=== PATIENT | male | born 1945 | race Caucasian/White ===

== ENCOUNTER → 2016-11-17 | Outpatient (CLI) | payer OTHER ==
[2016-11-17 11:45] LABS: ESTIMATED AVERAGE GLUCOSE 209 mg/dl; HA1C FLAG Normal (Normal)
[2016-11-17 11:49] LABS: BLOOD UREA NITROGEN 20 mg/dl (7-18); BUN/CREATININE RATIO 19.7 (10-20); CALCIUM 9.3 mg/dl (8.5-10.1); CARBON DIOXIDE 28 mmol/L (21-32); CHLORIDE 103 mmol/L (98-107); GLUCOSE 84 mg/dl (70-99); POTASSIUM 3.4 mmol/L (3.5-5.1); SODIUM 140 mmol/L (136-145)
--- NOTE | 2016-11-21 12:16 | CODING QUERY MEDICAL NECESSITY ---
SUPPORTING DIAGNOSIS NEEDED A supporting diagnosis is required for the test/procedure performed on this patient in order for us to be reimbursed by the patient's insurance. Please provide a supporting diagnosis for the following test/procedure listed below next to the test name along with your signature. *If there is no additional diagnosis for this patient that would support the following test/procedure please document that below next to the test/procedure. Test(s)/Procedure(s) that require a supporting diagnosis: DOS 11/17 * PSA DIAGNOSIS: Provider Signature: Date: Thank you Aury Serna Health Information Management Once completed, please kindly fax back to [phone] For questions please call [phone]
== END | disposition home or self-care (01) ==
LOC: C.LABBC 08:38
PROVIDERS: ATTEND Internal Medicine Geriatric Medicine
DX: I10 Essential (primary) hypertension (principal); E78.5 Hyperlipidemia, unspecified; E11.9 Type 2 diabetes mellitus without complications; E03.9 Hypothyroidism, unspecified

== ENCOUNTER → 2017-03-26 | Outpatient (CLI) | payer OTHER ==
[2017-03-26 11:03] LABS: ESTIMATED AVERAGE GLUCOSE 186 mg/dl; HA1C FLAG Normal (Normal)
[2017-03-26 11:41] LABS: BLOOD UREA NITROGEN 13 mg/dl (7-18); BUN/CREATININE RATIO 11.7 (10-20); CALCIUM 8.7 mg/dl (8.5-10.1); CARBON DIOXIDE 30 mmol/L (21-32); CHLORIDE 104 mmol/L (98-107); GLUCOSE 98 mg/dl (70-99); POTASSIUM 3.8 mmol/L (3.5-5.1); SODIUM 141 mmol/L (136-145)
== END | disposition home or self-care (01) ==
LOC: C.LABBC 08:14
PROVIDERS: ATTEND Internal Medicine
DX: Z00.00 Encounter for general adult medical examination without abnormal findings (principal); I10 Essential (primary) hypertension; E11.9 Type 2 diabetes mellitus without complications; E03.9 Hypothyroidism, unspecified

== ENCOUNTER → 2017-04-28 | Outpatient (CLI) | payer OTHER ==
--- NOTE | 2017-04-28 12:06 | DIAGNOSTIC IMAGING REPORT ---
CHEST 2 VIEWS ROUTINE CLINICAL HISTORY: Cough, sore THROAT S/P COLONOSCOPY dyspnea COMPARISON STUDY: No previous studies for comparison. FINDINGS: The bones soft tissues and hemidiaphragms are normal. The cardiomediastinal silhouette is normal. The lungs are clear. The pulmonary vasculature is normal. IMPRESSION: Negative chest. Electronically signed by: Patrice Rodriguez M.D. 04/28/2017 12:05 PM Dictated Date/Time: 04/28/2017 12:04 PM
== END | disposition home or self-care (01) ==
LOC: C.RAD 11:21
PROVIDERS: ATTEND Internal Medicine Gastroenterology
DX: R05 Cough (principal); J02.9 Acute pharyngitis, unspecified

== ENCOUNTER → 2018-02-15 | Outpatient (CLI) | payer OTHER ==
[2018-02-15 11:31] LABS: HEMOGLOBIN A1C 8.9 % (4.5-5.6)
[2018-02-15 11:38] LABS: BLOOD UREA NITROGEN 17 mg/dl (7-18); CALCIUM 8.6 mg/dl (8.5-10.1); CARBON DIOXIDE 29 mmol/L (21-32); CREATININE 0.94 mg/dl (0.60-1.40); GLUCOSE 130 mg/dl (70-99); POTASSIUM 3.7 mmol/L (3.5-5.1); SODIUM 138 mmol/L (136-145)
== END | disposition home or self-care (01) ==
LOC: C.LABBC 07:05
PROVIDERS: ATTEND Internal Medicine Geriatric Medicine
DX: I10 Essential (primary) hypertension (principal); E78.5 Hyperlipidemia, unspecified; E11.9 Type 2 diabetes mellitus without complications; E03.9 Hypothyroidism, unspecified

== ENCOUNTER 2020-05-15 08:52 | Inpatient (IN) ==
--- NOTE | 2020-04-24 10:29 | Anesthesiology Consultation ---
Date of Service April 24, 2020 Assessment & Plan (1) Encounter for pre-operative examination: Patient was seen in PAT 11/23/19 for shoulder surgery initially scheduled to be done 12/27/19, but was cancelled due to A1C elevation of 10.4%. A1C down to 8.1% as of 03/14/20. Labs will be updated again prior to surgery. Chart Review Chart Review: Acceptable Risk for Surgery (pending updated pre-op labs) and Patient NOT seen in Pre Admission Testing History Surgery Operation Date: 05/15/20 11:10 Proposed Procedures p Right Total shoulder Arthroplasty versus Right Reverse Total Shoulder Arthroplasty - Lyle Nieves, Height/Weight Height: 5 ft 5 in Weight: 77.111 kg Allergies Allergy/AdvReac Type Severity Reaction Status Date / Time No Known Allergies Allergy Verified 04/24/20 07:55 Medications Home Medications Medication Instructions Recorded Confirmed Last Taken levothyroxine 50 mcg tablet 50 mcg PO QAM tab 05/25/19 04/24/20 Unknown amlodipine 5 mg PO QAM 11/16/19 04/24/20 Unknown lisinopril-hydrochlorothiazide 1 tab PO QAM 11/16/19 04/24/20 Unknown insulin glargine 100 unit/mL (3 50 units SQ HS ml 11/29/19 04/24/20 Unknown mL) subcutaneous pen lisinopril 20 mg tablet 20 mg PO DAILY #90 tab 12/12/19 04/24/20 Unknown BD Ultra-Fine Short Pen Needle 31 #100 ea NS 02/17/20 03/20/20 Unknown gauge x 5/16" atorvastatin 10 mg tablet 10 mg PO DAILY #90 tab 02/17/20 04/24/20 Unknown ascorbic acid (vitamin C) 500 mg 500 mg PO .qday #90 cap 03/21/20 04/24/20 Unknown capsule ferrous sulfate 325 mg (65 mg 325 mg PO DAILY #90 tab 03/21/20 04/24/20 Unknown iron) tablet metformin 500 mg tablet 500 mg PO BID #180 tab 03/21/20 04/24/20 Unknown blood sugar diagnostic #100 ea 04/12/20 Unknown Past Medical History Medical History (Updated 04/24/20 @ 10:24 by Edgar Burleson) Amnesia, global, 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 Biopsy (05/06) benign. Hyperlipidemia (Chronic) Hypertension Hypothyroidism Localized osteoarthritis of both shoulders Past Family History Family History Sister Diabetes Anxiety Depression Family hx of colon cancer Family/Other Prostate cancer Brother Diabetes Kidney disease Father , age 44 Brain tumor Mother , age 75 Stomach cancer at age 75 Other No family history of adverse response to anesthesia Denies family history of Ovarian cancer Myocardial infarction Breast cancer Hypertension Past Surgical History Surgical History History of prostate biopsy History of right cataract extraction Hx of colonoscopy WITH POLYPECTOMY, 07/2017 Hx of knee surgery RT [place] teeth removed Social History Smoking Status: Former smoker tobacco type: cigarettes Do You Dip or Chew Tobacco: No Smoking End Date: quit 45yrs ago Hx Alcohol Use: Yes Alcohol type: wine alcohol intake frequency: 0-2 drinks per day Hx Substance Use: No substance use type: does not use Testing Electrocardiogram Date: 11/23/19 Findings: + SB @ (54bpm) No significant change from 08/14/08. Chest X-Ray Date: 11/23/19 FINDINGS: Calcified plaque of the thoracic aorta. No pneumothorax, pleural effusion, focal airspace consolidation or overt pulmonary edema. Punctate metallic density focus projects of the left mid chest, not visualized on the lateral view. Bones appear grossly intact. Loose bodies are noted within the left subscapularis recess. Degenerative changes of the shoulders and spine. IMPRESSION: No acute process.
[2020-04-25 13:18] LABS: Basophils # (auto) 0.03 K/uL (0-0.2); Basophils % (auto) 0.5 %; Eosinophils # (auto) 0.11 K/uL (0-0.5); Eosinophils % (auto) 1.8 %; Hematocrit (blood only) 44.5 % (42-52); Hemoglobin 14.9 g/dL (14.0-18.0); Immature Granulocytes # (auto) 0.02 K/uL (0.00-0.02); Immature Granulocytes % (auto) 0.3 %; Lymphocytes # (auto) 1.46 K/uL (1.2-3.4); Lymphocytes % (auto) 23.9 %; Mean Corpuscular Hgb Conc 33.5 g/dL (32-36); Mean Corpuscular Volume 77.7 fL (80-100); Mean Platelet Volume 9.7 fL (7.4-10.4); Monocytes # (auto) 0.51 K/uL (0.11-0.59); Monocytes % (auto) 8.4 %; Neutrophils # (auto) 3.97 K/uL (1.4-6.5); Neutrophils % (auto) 65.1 %; Platelet Count 198 K/uL (130-400); RDW Coefficient of Variation 15.1 % (11.5-14.5); RDW Standard Deviation 42.7 fL (36.4-46.3); Red Blood Count 5.73 M/uL (4.7-6.1)
[2020-04-25 13:27] LABS: Free PSA % 19.2 %; Prostate Specific Antigen 5.52 ng/ml (0-4); Prothrombin Time 10.5 Seconds (9.0-12.0)
[2020-04-25 13:37] LABS: Estimated Average Glucose 177 mg/dl; Hemoglobin A1C 7.8 % (4.5-5.6)
[2020-04-25 13:57] LABS: BUN Creatinine Ratio 15.5 (10-20); Blood Urea Nitrogen 15 mg/dl (7-18); Carbon Dioxide 27 mmol/L (21-32); Chloride 102 mmol/L (98-107); Est GFR (African American) 90.5; Est GFR (Non-African American) 78.1; Glucose 113 mg/dl (70-99); Sodium 136 mmol/L (136-145)
--- NOTE | 2020-05-10 09:04 | History & Physical Report ---
Date of Service May 10, 2020 Assessment & Plan (1) Osteoarthritis of left shoulder: We will proceed with a left total shoulder arthroplasty. He understands if the rotator cuff quality is poor he may need a reverse shoulder replacement. Postoperatively he will be placed in an arm sling and kept overnight in the hospital for postoperative medical management. He plans to use energy physical therapy upon discharge. Present on Admission?: Yes History of Present Illness Chief Complaint: Primary osteoarthritis of the left shoulder Primary Care Prov ider: Lyle Escalona DO Humble is a pleasant 74-year-old male who is been dealing with chronic increasing left shoulder pain. X-rays and clinical examination have been diagnostic for advanced osteoarthritis of the left shoulder. After failing extensive conservative treatment, he has elected to proceed with a left total shoulder arthroplasty. Allergies Allergy/AdvReac Type Severity Reaction Status Date / Time No Known Allergies Allergy Verified 04/24/20 07:55 Home Medications Home Medications Medication Instructions Recorded Confirmed Type levothyroxine 50 mcg tablet 50 mcg PO QAM tab 05/25/19 04/24/20 History amlodipine 5 mg PO QAM 11/16/19 04/24/20 History lisinopril-hydrochlorothiazide 1 tab PO QAM 11/16/19 04/24/20 History insulin glargine 100 unit/mL (3 50 units SQ HS ml 11/29/19 04/24/20 History mL) subcutaneous pen lisinopril 20 mg tablet 20 mg PO DAILY #90 tab 12/12/19 04/24/20 Rx BD Ultra-Fine Short Pen Needle 31 #100 ea NS 02/17/20 03/20/20 Rx gauge x 5/16" atorvastatin 10 mg tablet 10 mg PO DAILY #90 tab 02/17/20 04/24/20 Rx ascorbic acid (vitamin C) 500 mg 500 mg PO .qday #90 cap 03/21/20 04/24/20 Rx capsule ferrous sulfate 325 mg (65 mg 325 mg PO DAILY #90 tab 03/21/20 04/24/20 Rx iron) tablet metformin 500 mg tablet 500 mg PO BID #180 tab 03/21/20 04/24/20 Rx blood sugar diagnostic #100 ea 04/12/20 Rx Past Med/Surg History Medical History Amnesia, global, 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 Biopsy (05/06) benign. Hyperlipidemia (Chronic) Hypertension Hypothyroidism Localized osteoarthritis of both shoulders Surgical History History of prostate biopsy History of right cataract extraction Hx of colonoscopy WITH POLYPECTOMY, 07/2017 Hx of knee surgery RT [place] teeth removed Family History Sister Diabetes Anxiety Depression Family hx of colon cancer Family/Other Prostate cancer Brother Diabetes Kidney disease Father , age 44 Brain tumor Mother , age 75 Stomach cancer at age 75 Other No family history of adverse response to anesthesia Denies family history of Ovarian cancer Myocardial infarction Breast cancer Hypertension Social History Smoking Status: Never smoker Age Started Using Tobacco: 23; Age Quit Using Tobacco: 29; packs per day: 0.5; 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); Hx Alcohol Use: Yes Alcohol type: wine Hx Substance Use: No Preferred Language: [place] Communication Ability: Effective Visual Impairment: No Limitations Hearing Ability: Normal Paleology Professor Required: No Beliefs That Will Affect Care: None marital status: Current Living Situation: Spouse and Family Current Living Situation Comment: lives with and son current occupational status: retired current occupation: teacher other: Previous Service Feels Safe at Home: Yes Childhood Exposure to Second-Hand Smoke: Yes caffeine: Yes Dental Care, Regularly: Yes Physical Activity Frequency: 1-2 Times per Week Seatbelt Use: always Sunscreen Use: Yes Review of Systems Review of Systems: All systems reviewed & are unremarkable except as noted in HPI & below Physical Exam Constitutional: WD/WN, vitals as above Eyes: PERRL, conjunctivae normal, anicteric sclerae ENMT: external ear and nose normal, oropharynx normal Neck: trachea midline, no thyromegaly Respiratory: normal respiratory effort Cardiovascular: RRR, no murmur, no edema Gastrointestinal (Abdomen): normal bowel sounds, soft, nontender, no hepatosplenomegaly Musculoskeletal: Physical examination of the left shoulder reveals decreased range of motion and crepitis throughout. There is good strength with full can testing and external rotation. There is tenderness palpation along the anterior glenohumeral joint line. The right upper extremity is neurovascularly intact. Psychiatric: A+Ox3, euthymic affect Results & Data Results & Data ([facility]) Diagnostic Findings Radiographs of the left shoulder show osteoarthritis of the glenohumeral joint. There is joint space narrowing, osteophyte formation, and [id number] articulation. PG Care Time/CCT Total # of Minutes Spent Total Time Spent with Patient: Total time spent is greater than 50% in coordination of care (as documented) at patient's floor/unit and/or counseling patient: Coding Level of Care Code 42690 Initial Inpt Care Lvl 3 Diagnoses Osteoarthritis of left shoulder M19.012
--- NOTE | 2020-05-15 08:28 | History & Physical Bridge Note ---
Date of Service May 15, 2020 History & Physical Bridge Note I have examined the patient, reviewed the History & Physical and in the interval since the performance of the History & Physical I have noted the following changes of clinical significance: no changes noted
[~2020-05-15 08:52] MED LIST: ACETAMINOPHEN 500 MG TAB PO SCH; BUPIVACAINE 0.5 % 5 MG/1 ML PF 10ML VIAL ONE; CEFAZOLIN 1000MG 1,000 MG/7.5 ML SYR IV SCH; FAMOTIDINE 20 MG TAB PO SCH; GABAPENTIN 300 MG CAP PO SCH; GLYCOPYRROLATE 0.2 MG/ML VIAL ONE; LIDOCAINE HCL 2% 2 ML VIAL/AMP(20MG/ML) INFIL ONE; LR 15ML/HR IV SCH; LR 60ML/HR IV SCH; MIDAZOLAM HCL 1 MG/ML 2ML VIAL ONE; NEOSTIGMINE METHYLSULFATE 5 MG/5 ML SYR ONE; ONDANSETRON INJ 2 MG/ML 2 ML VIAL ONE; PROPOFOL IV EMULSION 10 MG/ML 20 ML VIAL IV ONE; ROPIVACAINE 0.5% HCL/PF 150 MG, BUPIVACAINE 0.5% MPF 30 ML, EPINEPHrine 30MG/30ML (OR U... INSTIL SCH; TRANEXAMIC ACID 1,000 MG **IV Intra-op IV SCH; TRANEXAMIC ACID 1,000 MG **IV Pre-op IV SCH; dexAMETHasone 4 MG TAB PO SCH; fentaNYL citrate 100 MCG/2 ML VIAL ONE
[2020-05-15] MEDS ORDERED: ATROPINE SULFATE 0.1 MG/ML 10ML SYR IV PRN (09:08)
[2020-05-15] MEDS ORDERED: ONDANSETRON INJ 2 MG/ML 2 ML VIAL IV PRN ×2 (09:08→13:46)
[2020-05-15] MEDS ORDERED: fentaNYL citrate 100 MCG/2 ML VIAL IV PRN (09:08)
[2020-05-15] MEDS ORDERED: HYDROmorphone INJ 1 MG/ML SYRINGE IV PRN (09:08)
[2020-05-15] MEDS ORDERED: ePHEDrine sulfate 50 MG/ML AMP IV PRN (09:08)
[2020-05-15] MEDS ORDERED: ORTHO JOINT ANESTHETIC ONE (09:27)
--- NOTE | 2020-05-15 12:05 | Operative Report ---
PG Post Operative Report Pre & Post Diagnosis Operation Date: 05/15/20 10:55 Pre-Op Diagnosis: RIGHT SHOULDER DEGENERATIVE JOINT DISEASE with tendinopathy of the long head of the biceps tendon Post-Op Diagnosis: RIGHT SHOULDER DEGENERATIVE JOINT DISEASE with tendinopathy of the long head of the biceps tendon I identified the patient and participated in the time-out.: Yes Procedure Operation Date: 05/15/20 10:55 Actual Procedures p Right Total shoulder Arthroplasty with biceps tenodesis as a distinct and separate procedure (modifier 59) (right) - Lyle Nieves DO Surgeon Lyle Nieves DO Sign Designer Lyle Vazquez PAC Estimated Blood Loss 200 Findings Consistent with Post-Op Diagnosis Specimens Right humeral head Complications none Disposition Disposition: Recovery Room Indications Humble is a pleasant 74-year-old male who is been dealing with chronic increasing right shoulder pain. X-rays and clinical examination have been diagnostic for advanced osteoarthritis of the right shoulder. After failing conservative treatment, he elected proceed with a right shoulder arthroplasty. Description of Procedure A CPT code modifier 59: The long head of the biceps tendon was enlarged and inflamed consistent with tendinopathy. A tenodesis was opted. This was a separate and distinct portion of the procedure. For these reasons, a CPT code modifier 59 will be added to this case. Implants used: I used a Biomet Comprehensive total shoulder arthroplasty system with a size 13 press fit micro humeral stem, a size 50 x 24 eccentric humeral head, and a small size glenoid with a Regenerex peg. The glenoid was cemented in place with Palacos G cement. Humble arrived at [facility] for the above procedure. He was seen in the preoperative holding area and the operative extremity was identified and signed. He was given a preoperative antibiotic, TXA, and an interscalene nerve block. He was taken back to the operating room, laid on table in supine position, and put under general anesthesia. He was then put into the beachchair position. The shoulder was then prepped and draped in sterile fashion. A timeout was done and the patient and the operative extremity was properly identified. A deltopectoral approach was used. Dissection was taken down through the fascia and the deltoid was retracted laterally and the conjoined tendon was retracted medially. The anterior shoulder was exposed. The biceps groove was opened up and the biceps tendon was examined extensively. The biceps tendon demonstrated enlargement and inflammatory changes consistent with longstanding inflammation in the context of osteoarthritis. The long head of the biceps tendon was then tenodesed to the upper border of the pectoralis major. This was a separate and distinct portion of the procedure. The subscapularis was then released off the lesser tuberosity with a centimeter of cuff tissue remaining. The inferior capsule was released and the humeral head was dislocated. The rotator cuff was inspected and intact. A canal finding reamer was sent down the center of the humeral canal. Sequential reaming up to a size 13 reamer was done. Offset reamer a proximal humeral resection guide was placed. The proximal humerus was resected at 135 of inclination and 30 of retroversion. Inferior osteophytes were then removed and the glenoid was exposed. Time was spent doing an appropriate labral release. The glenoid measured to be a size small. A gBox signature guide was then attached onto the anterior rim of the glenoid. A 3.2 mm Steinmann pin was then placed in the total shoulder arthroplasty hole. The glenoid was then reamed with a propeller reamer. The central post cutter was then used to prepare for the central boss. The cannulated peripheral peg drill guide was then placed and 3 peg holes were drilled. The final size small glenoid was then cemented in place with Palacos G cement. Surrounding soft tissues were then injected with 100 cc of an orthopedic pain control cocktail. Once cement had dried the proximal humerus was once again exposed. Sequential broaching of the humerus up to a size 11 broach was done. Off that broach a size 50 x 24 eccentric humeral head was trialed. The shoulder was then reduced, brought through a full range of motion, and felt to be stable. The shoulder was then dislocated and the broach was removed. The final size 11 micro humeral stem implant was then impacted into place. A size 50 x 24 eccentric humeral head was then impacted onto the humeral stem. The shoulder was then reduced and once again brought through a full range of motion and felt to be stable. The subscapularis was then tenodesed back to the lesser tuberosity with transosseous FiberWire sutures and side to side sutures with the arm in 45 of external rotation. 2 sutures were placed in the lateral rotator interval. A dilute betadyne lavage was then done for 3 minutes. The joint was then irrigated with normal saline solution. Hemostasis was obtained. The interval was closed with 2-0 Vicryl suture. The skin was closed with 2-0 Vicryl and sheela. A Silverlon was placed and the arm was rested in a regular arm sling. He was then extubated and transferred to a hospital bed. He was taken to the postanesthesia care unit in stable condition. He tolerated the procedure well. Lyle Vazquez PA-C, was present for the entire procedure. He was critical for patient positioning, prepping, draping, retraction exposure, wound closure and application of sterile dressing. I attest to the content of the Intraoperative Record and any orders documented therein. Any exceptions are noted below.
--- NOTE | 2020-05-15 12:59 | XRay Report ---
XR shoulder RT min 2V routine CLINICAL HISTORY: Post shoulder surgery COMPARISON: 11/23/2019 DISCUSSION: There are postsurgical changes of a total right shoulder arthroplasty. There is no disloc ation. There are overlying skin sheela. There is air the soft tissues consistent with recent surgery . There is right lower lung zone atelectatic change. IMPRESSION: Postsurgical changes of a total right shoulder arthroplasty. No evidence of dislocation ACT 112: Negative or not required by law. Electronically signed by: Geo Yeboah M.D. 05/15/2020 12:57 PM
--- NOTE | 2020-05-15 13:14 | Anesthesiology Progress Note ---
Date of Service May 15, 2020 Anesthesia Post Procedure Vital Signs Vital Signs: Temp Pulse Pulse Resp BP Pulse Ox 05/15/20 12:50 67 18 130/79 94 05/15/20 12:40 65 20 147/77 H 98 05/15/20 12:30 62 18 143/74 H 99 05/15/20 12:22 35.8 C L 64 16 145/73 H 99 05/15/20 09:45 60 18 147/84 H 95 05/15/20 09:17 36.9 C 63 20 146/92 H 96 Transfer of Care Handoff Completed per policy Notes Mental Status: alert / awake / arousable and participated in evaluation Patient Amnestic to Procedure: Yes Nausea / Vomiting: adequately controlled Pain: adequately controlled Airway Patency, RR, SpO2: stable & adequate BP & HR: stable & adequate Hydration State: stable & adequate Anesthetic Complications: no major complications apparent and Pt Satisfied with anesthetic care
[2020-05-15] MEDS ORDERED: OXYCODONE HCL IR 5 MG TAB (IMMEDIATE RELEASE) PO PRN (13:46)
[2020-05-15] MEDS ORDERED: MAGNESIUM HYDROXIDE SUSP 30 ML UDC PO PRN (13:46)
[2020-05-15] MEDS ORDERED: bisacodyL 10 MG SUPP PR PRN (13:46)
[2020-05-15] MEDS ORDERED: NALOXONE HCL 0.4 MG/1 ML VIAL/CARP IV PRN (13:46)
[2020-05-15] MEDS ORDERED: METOCLOPRAMIDE HCL INJ 5 MG/ML 2 ML VIAL IV PRN (13:46)
[2020-05-15] MEDS ORDERED: HYDROmorphone INJ 0.5 MG/0.5 ML SYR IV PRN (13:46)
[2020-05-15] MEDS ORDERED: PHARMACY GLYCEMIC MGMT CONSULT PRN (14:07)
--- NOTE | 2020-05-15 14:37 | Pharmacy Report ---
Glycemic Control Consultation - Date of Service May 15, 2020 - Scope Scope: Glycemic Pharmacist consulted for glycemic control and to write orders per [facility] inpatient glycemic control protocol. - Objective Weight: 79.469 kg Accuchecks BSG (last 24hrs): 05/15/20 05/15/20 09:15 12:25 POC Glucose 130 H 138 H HbA1c: Hemoglobin A1c 7.8 % (4.5-5.6) H 04/25/20 09:57 - Recent Pertinent Medications Outpatient Anti-diabetic Regimen: * Lantus 50 units SC HS + Metformin 1000 mg PO BIDM * A1c = 7.8% (04/25/2020) Risk Factors for Insulin Resistance: * Steroids: * Dexamethasone 8 mg PO x 1 pre-op * Dexamethasone 4 mg topical x 1 intra-op * Recent Surgery: * POD #0 s/p Right Total Shoulder Arthroplasty * Diet: * T2DM - Assessment & Plan Assessment & Plan: ASSESSMENT: * 74 yo M who is POD #0 s/p Right Total Shoulder Arthroplasty. Pharmacy is consulted for post-operative glycemic management. * Patient's A1c is controlled as an outpatient on Lantus + Metformin. ADA & AACE recommend a goal blood sugar range 140-180 mg/dl for the majority of critically ill & non-critically ill patients. However, more stringent targets may be selected in individual cases. Will utilize more stringent goal of 110- 140mg/dl based on patient age & comorbidities. Additionally, tighter glycemic control is warranted to facilitate wound/infection healing. * Patient did receive dexamethasone pre-operatively. Dexamethasone will have its most profound effect on post-prandial BSGs. There are no further steroid doses ordered. * Pre-op BSG was 130 mg/dL. Patient did received 50 units of Lantus last evening. Post-op BSG was 138 mg/dL. * Will resume patient's home dose of 50 units at HS this evening given controlled BSGs post-op. Will start patient on a high stress/dose, weight- based, carb ratio and correction factor. PLAN FOR INPATIENT GLYCEMIC CONTROL: * Holding outpatient oral diabetes medications * Basal insulin * Lantus 50 units SQ HS * Bolus insulin * NovoLog per scale ACHS or Q6hrs while NPO * Goal Range: Low 110 mg/dL - High 140 mg/dL * Correction Factor: 20 mg/dL/unit * Nutritional / Prandial insulin per carb ratio of 1 unit per 7 grams CHO consumed * Please note that the plan above was derived based on current level of insulin resistance and hospital stress. These recommendations are appropriate for inpatient admission only. Plan of care upon discharge will need to be reassessed to avoid potential outpatient hypo/hyperglycemia. Thank you.
[2020-05-15] MEDS: SODIUM CHLORIDE 0.9% 1000ML 1,000 ML IV SCH (15:25)
[2020-05-15] MEDS: INSULIN ASPART 100 UNITS/ML 3 ML PEN SC SCH ×3 (15:34→21:31)
[2020-05-15] MEDS: ACETAMINOPHEN 500 MG TAB PO SCH ×2 (15:35→21:29)
[2020-05-15] MEDS ORDERED: INSULIN ASPART 100 UNITS/ML 3 ML PEN SC SCH (17:15)
[2020-05-15] MEDS: CEFAZOLIN 2000MG 2,000 MG/15 ML SYR IV SCH (18:19)
[2020-05-15] MEDS: KETOROLAC TROMETHAMINE 15 MG/ML VIAL IV SCH (18:19)
[2020-05-15] MEDS ORDERED: COUGH DROP (SUGAR FREE) LOZ 24 LOZ/1 BOX BUCCAL ONE (18:20)
[2020-05-15] MEDS ORDERED: INSULIN GLARGINE SOLOSTAR 100 UNITS/ML 3 ML PEN SC SCH (21:00)
[2020-05-15] MEDS ORDERED: SENNA 8.6 MG TAB PO SCH (21:00)
[2020-05-15] MEDS: DOCUSATE SODIUM 100 MG CAP PO SCH (21:29)
[2020-05-16] MEDS: SODIUM CHLORIDE 0.9% 1000ML 1,000 ML IV SCH (00:45)
[2020-05-16] MEDS: KETOROLAC TROMETHAMINE 15 MG/ML VIAL IV SCH ×2 (00:51→06:08)
[2020-05-16] MEDS: CEFAZOLIN 2000MG 2,000 MG/15 ML SYR IV SCH (00:57)
[2020-05-16] MEDS: ACETAMINOPHEN 500 MG TAB PO SCH (06:09)
[2020-05-16 06:22] LABS: Hematocrit (blood only) 37.3 % (42-52); Immature Granulocytes # (auto) 0.03 K/uL (0.00-0.02); Immature Granulocytes % (auto) 0.3 %; Lymphocytes # (auto) 0.72 K/uL (1.2-3.4); Lymphocytes % (auto) 6.6 %; Mean Corpuscular Hgb Conc 34.9 g/dL (32-36); Mean Corpuscular Volume 77.4 fL (80-100); Mean Platelet Volume 9.6 fL (7.4-10.4); Monocytes # (auto) 0.49 K/uL (0.11-0.59); Monocytes % (auto) 4.5 %; Neutrophils # (auto) 9.64 K/uL (1.4-6.5); Neutrophils % (auto) 88.6 %; Platelet Count 190 K/uL (130-400); RDW Coefficient of Variation 15.1 % (11.5-14.5); Red Blood Count 4.82 M/uL (4.7-6.1); White Blood Count 10.88 K/uL (4.8-10.8)
[2020-05-16] MEDS ORDERED: LEVOTHYROXINE SODIUM 50 MCG TABLET PO SCH (06:30)
--- NOTE | 2020-05-16 06:46 | Orthopedic Progress Note ---
Date of Service May 16, 2020 Assessment & Plan (1) Status post replacement of right shoulder joint: Overall he is doing very well. Is not having much pain in the right shoulder. He will be seen by physical therapy this morning for ambulation and range of motion exercises. He can be discharged home later today. He will follow-up with orthopedics in 2 weeks. Present on Admission?: Yes Subjective Humble was seen and examined at bedside this morning. Overall he is doing very well. Is not having much pain in the right shoulder. He was able to get some sleep last night. He has no complaints. Physical Exam Musculoskeletal: On physical examination of the right shoulder, the Silverlon dressing is clean and dry. He is wearing his sling as instructed. His radial, median, and ulnar nerves are checked intact at his wrist. Results & Data ([facility]) Vital Signs (Past 12 Hours) Vital Signs Temp Pulse Resp BP Pulse Ox 05/16/20 02:49 36.5 C 69 16 126/72 95 05/15/20 23:00 36.6 C 68 16 115/67 96 Diagnostic Findings Postoperative x-rays of the right shoulder show the prosthesis to be in anatomic alignment without any evidence of fracture, dislocation, or loosening. PG Care Time/CCT Total # of Minutes Spent Total Time Spent with Patient: Total time spent is greater than 50% in coordination of care (as documented) at patient's floor/unit and/or counseling patient: Coding Level of Care Code None Diagnoses Status post replacement of right shoulder joint Z96.611
--- NOTE | 2020-05-16 06:47 | Discharge Summary ---
Date of Service May 16, 2020 Admission HPI Per Admitting Provider Humble is a pleasant 74-year-old male who is been dealing with chronic increasing left shoulder pain. X-rays and clinical examination have been diagnostic for advanced osteoarthritis of the left shoulder. After failing extensive conservative treatment, he has elected to proceed with a left total shoulder arthroplasty. Principal Diagnosis Right shoulder replacement Discharge Data Allergies Allergy/AdvReac Type Severity Reaction Status Date / Time No Known Allergies Allergy Verified 05/15/20 09:17 Procedures Performed Operation Date: 05/15/20 10:55 Actual Procedures p Right Total shoulder Arthroplasty versus Right Reverse Total Shoulder Arthroplasty(Right) - Lyle Nieves DO Ordered Studies 05/15/20 05:00 US - OR guided needle placemen Routine 05/15/20 09:09 US - OR guided needle placemen Routine Hospital Course (1) Status post replacement of right shoulder joint: On May 15, 2020 Humble arrived at [facility] and underwent a right shoulder replacement without complication. He had a general anesthetic and a right interscalene nerve block. Postoperatively he was placed in a sling and transferred to the general orthopedic floors. His hospital course was uneventful. On postop day #1 his H&H was stable and his pain was well controlled. He was able to up his feet well with physical therapy doing ambulation and range of motion exercises. He was then discharged home. He will follow-up with orthopedics in 2 weeks. Total Time Total Time Spent Total Time Spent (In Minutes): 20 Discharge Plan Discharge Items Patient Disposition: Home - Home Health Services Reason For Visit: RIGHT SHOULDER DEGENERATIVE JOINT DISEASE Discharge Diagnosis: Right shoulder replacement Activity: As commented below Non-emergency contact: Surgeon Call non-emergency contact if: your wound has increased redness and your wound has increased drainage Follow-up/Referrals: Lyle Escalona DO [Primary Care Provider] - Diet: Carb Consistent or DM2 Addtl Attending Provider Instructions: Activity and Therapy Recommendations: * If you are using [facility] then therapy will be provided at your home until they feel you have accomplished all of your goals. * If you are using [facility] then Physical Therapy will be provided until they feel you are ready to start Outpatient Physical Therapy. * If you are not using home therapy then Outpatient Physical Therapy should start about 3-5 days from your day of surgery. Therapy will last about 8-12 weeks * Wear your sling for 3 weeks, unless otherwise instructed. You may remove your sling to shower and to dress, but otherwise, you should be in your sling at all times, including while sleeping * The shoulder replacement is very stable and you can use your hand while in the sling * You were shown a series of exercises in the hospital. Do these exercises daily including the exercises you were shown in physical therapy. Medications: * Narcotic You will likely be sent home from the hospital with a prescription for the narcotic pain medication that worked best throughout your stay. * Other medications may be prescribed for specific circumstances. If you have any questions, please call the office at . * Resume previous home medications unless otherwise instructed Dressing Care: Leave the Silverlon dressing in place for 7 days. After 7 days you may remove the dressing. If the incision is not draining then you may leave the sheela open to air. If there is a little bit of drainage or if the sheela are getting stuck on your clothing then cover the incision with a dry dressing. The sheela will be removed at your 2 week follow-up appointment. Showering: You may shower with the Silverlon dressing in place. Let the shower spray hit the other shoulder. You can pat the plastic dry. If the dressing becomes wet underneath the plastic then simply remove the dressing. Keep the incision dry until you are 7 days out from the day of surgery. At that time you can shower with the sheela exposed. Let the soapy shower water run over the sheela and pat them dry. Do not scrub or soak the incision. Things To Watch For: * Drainage from the incision site that occurs more than one week after your surgery. * Increased redness at the incision site. * Fever above 102 degrees Fahrenheit. * Unusual chest pain or shortness of breath. * Call [facility] at with any of the above problems Follow-Up Visit: Follow-up with Dr. iNeves's PA (Lyle Vazquez) 2-3 weeks after your day of surgery. He will remove your sheela and answer any questions. If you have any additional questions or concerns, Dr Nieves is usually in the office at the same time and will be available An appointment was probably scheduled when you signed-up for surgery in the office. If you have any questions call More detailed instructions as well as Frequently Asked Questions were provided in a folder by our office when you signed-up for surgery. Please review these instructions when you get home. If you have any further questions or concerns, please feel free to call the office at [phone] Pending Studies at Discharge: No Stand-Alone Forms: My [facility] [place] [employer], Smoking Cessation Medications and DC Order Prescriptions: New oxycodone 5 mg Tablet 5 mg PO Q4H PRN (Reason: pain) Qty: 30 RF: 0 Continued lisinopril 20 mg tablet 20 mg PO DAILY Qty: 90 RF: 3 atorvastatin 10 mg tablet 10 mg PO DAILY Qty: 90 RF: 3 (DME) pen needle, diabetic [BD Ultra-Fine Short Pen Needle] 31 gauge x 5/16" needle See Dose Instructions .ROUTE .MEDSUPPLY Qty: 100 RF: 3 ferrous sulfate 325 mg (65 mg iron) tablet 325 mg PO DAILY Qty: 90 RF: 0 ascorbic acid (vitamin C) 500 mg capsule 500 mg PO .qday Qty: 90 RF: 0 metformin 500 mg tablet 500 mg PO BID Qty: 180 RF: 3 (DME) OneTouch Ultra Blue Test Strip Strip See Dose Instructions .ROUTE .MEDSUPPLY Qty: 100 RF: 3 levothyroxine 50 mcg tablet 50 mcg PO QAM RF: 0 amlodipine 5 mg tablet 5 mg PO QAM RF: 0 lisinopril-hydrochlorothiazide 20-25 mg tablet 1 tab PO QAM RF: 0 Lantus Solostar U-100 Insulin 100 unit/mL (3 mL) insulin pen 50 units SQ HS RF: 0 Discharge Orders: Discharge Order (Routine); Ordered 05/16/20 Ordered By: Lyle Hamilton/Other Patient Handouts: Managing Type 2 Diabetes Admission Data Admit Date/Time: 05/15/20 12:21 Attending Provider: Lyle Nieves Admit Provider: Lyle Nieves Primary Care Provider: Lyle Escalona Coding Level of Care Code D/C Day Management <30 mins Diagnoses Status post replacement of right shoulder joint Z96.611
[2020-05-16 06:52] LABS: BUN Creatinine Ratio 17.3 (10-20); Calcium 8.3 mg/dl (8.5-10.1); Creatinine Clr Calc Pharmacy 64.6 ml/min; Est GFR (African American) 86.2; Est GFR (Non-African American) 74.3; Potassium 4.1 mmol/L (3.5-5.1)
[2020-05-16] MEDS: DOCUSATE SODIUM 100 MG CAP PO SCH (08:48)
[2020-05-16] MEDS: INSULIN ASPART 100 UNITS/ML 3 ML PEN SC SCH (08:51)
[2020-05-16] MEDS ORDERED: MULTIVITAMIN TAB PO SCH (09:00)
[2020-05-16] MEDS ORDERED: LISINOPRIL/HCTZ 20/25MG 1 TAB PO SCH (09:00)
[2020-05-16] MEDS ORDERED: AMLODIPINE BESYLATE 5 MG TAB PO SCH (09:00)
[2020-05-16] MEDS ORDERED: lisinopriL 20 MG TAB PO SCH (09:00)
[2020-05-16] MEDS ORDERED: ATORVASTATIN 10 MG TAB PO SCH (09:00)
[2020-05-16] MEDS ORDERED: FERROUS SULFATE 325 MG TAB PO SCH (09:00)
== END 2020-05-16 11:50 | disposition home health service (06) | DRG 483 ==
LOC: ASU 08:52 → 3E 12:21

== ENCOUNTER 2020-08-24 08:38 | Inpatient (IN) ==
--- NOTE | 2020-07-11 15:37 | PAT Medication Instructions ---
Medication Instructions Date of Service July 11, 2020 Home Medications Medication Instructions Recorded lisinopril 20 mg tablet 20 mg PO DAILY #90 tab 12/12/19 BD Ultra-Fine Short Pen Needle 31 #100 ea NS 02/17/20 gauge x 5/16" atorvastatin 10 mg tablet 10 mg PO DAILY #90 tab 02/17/20 ascorbic acid (vitamin C) 500 mg 500 mg PO .qday #90 cap 03/21/20 capsule blood sugar diagnostic #100 ea 04/12/20 amlodipine 5 mg tablet 5 mg PO QAM #90 tab 06/20/20 ferrous sulfate 325 mg (65 mg 325 mg PO DAILY #90 tab 06/20/20 iron) tablet lisinopril 20 1 tab PO QAM #90 tab 06/20/20 mg-hydrochlorothiazide 25 mg tablet metformin 1,000 mg tablet 1,000 mg PO BID #180 tab 07/03/20 levothyroxine 50 mcg tablet 50 mcg PO QAM #90 tab 07/09/20 insulin glargine 100 unit/mL (3 mL) subcutaneous pen 50 units SQ HS lisinopril 20 mg tablet 20 mg PO DAILY atorvastatin 10 mg tablet 10 mg PO DAILY ascorbic acid (vitamin C) 500 mg capsule 500 mg PO .qday amlodipine 5 mg tablet 5 mg PO QAM ferrous sulfate 325 mg (65 mg iron) tablet 325 mg PO DAILY lisinopril 20 mg-hydrochlorothiazide 25 mg tablet 1 tab PO QAM metformin 1,000 mg tablet 1,000 mg PO BID levothyroxine 50 mcg tablet 50 mcg PO QAM DO NOT take the morning of surgery lisinopril 20 mg tablet 20 mg PO DAILY ascorbic acid (vitamin C) 500 mg capsule 500 mg PO .qday ferrous sulfate 325 mg (65 mg iron) tablet 325 mg PO DAILY lisinopril 20 mg-hydrochlorothiazide 25 mg tablet 1 tab PO QAM metformin 1,000 mg tablet 1,000 mg PO BID Take morning of surgery With a small sip of water, OTHERWISE NOTHING TO EAT OR DRINK AFTER MIDNIGHT: atorvastatin 10 mg tablet 10 mg PO DAILY amlodipine 5 mg tablet 5 mg PO QAM levothyroxine 50 mcg tablet 50 mcg PO QAM Take evening before surgery insulin glargine 100 unit/mL (3 mL) subcutaneous pen 50 units SQ HS metformin 1,000 mg tablet 1,000 mg PO BID Other Notes If you have any questions please call us at [phone] or [phone] or [phone] or [phone]
--- NOTE | 2020-07-12 08:37 | Anesthesiology Consultation ---
Date of Service July 12, 2020 Assessment & Plan (1) Encounter for pre-operative examination: COVID Status: As of 07/12 assessment, patient denies travel to endemic area, known exposure/sick contacts, or symptoms of COVID19. Patient instructed that they and their household members must follow strict social distancing guidelines, wear a mask in public and avoid travel for 14 days prior to surgery. Preoperative COVID19 testing to be completed prior to surgery per surgeon's a rrangements. Patient made aware to self-isolate as much as possible between COVID testing and surgery. Patient goes by "Ramirez" Chart Review Chart Review: Acceptable Risk for Surgery and Patient NOT seen in Pre Admission Testing Teaching & Discussion Instructed NPO after midnight before surgery, except medications with 15 cc of water. Medication instructions provided according to the PAT guidelines. History Surgery Operation Date: 08/24/20 13:10 Proposed Procedures p Left Total Shoulder Arthroplasty versus - Lyle Simeoner, DO s Left Reverse Total Shoulder - Lyle Simeoner, DO Height/Weight Height: 5 ft 5.5 in Weight: 79.3 kg Allergies Allergy/AdvReac Type Severity Reaction Status Date / Time No Known Allergies Allergy Verified 07/11/20 10:12 Medications Home Medications Medication Instructions Recorded Confirmed Last Taken insulin glargine 100 unit/mL (3 50 units SQ HS ml 11/29/19 07/11/20 05/14/20 21:00 mL) subcutaneous pen lisinopril 20 mg tablet 20 mg PO DAILY #90 tab 12/12/19 07/11/20 05/14/20 07:00 BD Ultra-Fine Short Pen Needle 31 #100 ea NS 02/17/20 07/03/20 Unknown gauge x 5/16" atorvastatin 10 mg tablet 10 mg PO DAILY #90 tab 02/17/20 07/11/20 05/14/20 07:00 ascorbic acid (vitamin C) 500 mg 500 mg PO .qday #90 cap 03/21/20 07/11/20 05/14/20 11:00 capsule blood sugar diagnostic #100 ea 04/12/20 07/03/20 Unknown amlodipine 5 mg tablet 5 mg PO QAM #90 tab 06/20/20 07/11/20 Unknown ferrous sulfate 325 mg (65 mg 325 mg PO DAILY #90 tab 06/20/20 07/11/20 Unknown iron) tablet lisinopril 20 1 tab PO QAM #90 tab 06/20/20 07/11/20 Unknown mg-hydrochlorothiazide 25 mg tablet metformin 1,000 mg tablet 1,000 mg PO BID #180 tab 07/03/20 07/11/20 Unknown levothyroxine 50 mcg tablet 50 mcg PO QAM #90 tab 07/09/20 07/11/20 Unknown Past Medical History Medical History Amnesia, global, 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 Biopsy (05/06) benign. History of dysphagia Has had issues with food getting stuck, has had a few EGD dilations Hyperlipidemia Hypertension Hypothyroidism Exercise / Class Metabolic Activity II 4-5 Yardwork/Stairs/Walk up hill Past Family History Family History Sister Family hx of colon cancer Diabetes Anxiety Depression Family history of diabetes mellitus Family/Other Prostate cancer Brother Diabetes Kidney disease Father , age 44 Brain tumor Mother , age 75 Stomach cancer at age 75 Family history of diabetes mellitus Other No family history of adverse response to anesthesia Denies family history of Ovarian cancer Myocardial infarction Breast cancer Hypertension Past Surgical History Surgical History History of esophagogastroduodenoscopy (EGD) History of prostate biopsy History of right cataract extraction Hx of colonoscopy WITH POLYPECTOMY, 07/2017 Hx of knee surgery RT Status post replacement of right shoulder joint (~04/2020) [place] teeth removed Past Anesthesia History No Hx of Anesthesia Complications and No Family Hx of Anesthesia Complications History of PONV No Hx of PONV and No Hx of Motion Sickness Social History Smoking Status: Former smoker tobacco type: cigarettes Do You Dip or Chew Tobacco: No Smoking End Date: 1974 Hx Alcohol Use: Yes Alcohol type: wine alcohol intake frequency: 0-2 drinks per day Hx Substance Use: No substance use type: does not use Review of Systems Pt denies any recent chest pain, shortness of breath, palpitations, cough, fever, URI, or uncontrolled acid reflux. Physical Exam Vital Signs BP: 142/84 P: 63bpm SPO2: 96% RA T: 98.3 F R: 12 ENMT Mouth: + dental restorations (crowns, upper incisors and molars); no chipped teeth and no loose teeth Thyromental Distance: > or= 3.5 Finger Breadths Mallampati Class: II Neck normal visual inspection; neck extension not limited Respiratory normal respiratory effort Auscultation: lungs clear to auscultation bilaterally Cardiovascular Rate/Rhythm: regular rate and regular rhythm Heart Sounds: no murmur Extremities: no edema Testing Laboratory Results PT 10.4 Seconds (9.0-12.0) 07/12/20 08:41 INR 1.0 (0.9-1.1) 07/12/20 08:41 APTT 28.6 Seconds (21.0-31.0) 07/12/20 08:41 Blood Type O Negative 07/12/20 08:41 Antibody Screen NEGATIVE 07/12/20 08:41 07/02/20 WBC: 5.23 H/H: 16.1/47.2 PLATELETS: 210 SODIUM: 137 POTASSIUM: 3.7 CHLORIDE: 102 CO2: 28 BUN: 12 CREATININE: 0.93 GLUCOSE: 127 A1C: 8.1% Electrocardiogram Date: 11/23/19 Sinus bradycardia @ 54bpm When compared with ECG of 14-AUG-2008 09:51, No significant change was found. Chest X-Ray Date: 11/23/19 Findings: + NAD
[2020-07-12 10:42] LABS: Partial Thromboplastin Time 28.6 Seconds (21.0-31.0); Prothrombin Time 10.4 Seconds (9.0-12.0)
--- NOTE | 2020-08-23 08:45 | History & Physical Report ---
Date of Service August 23, 2020 Assessment & Plan (1) Osteoarthritis of left shoulder: We will proceed with a left total shoulder arthroplasty. Postoperatively he will be placed in a sling and kept overnight in the hospital for postoperative medical management. [facility] plans [facility]. Present on Admission?: Yes History of Present Illness Chief Complaint: Primary osteoarthritis of the left shoulder Primary Care Provider: Lyle Escalona DO Humble is a pleasant 74-year-old male who I did a right total shoulder arthroplasty on about 4 months ago. He is done very well with that. Unfortunately he has been dealing with a lot of left shoulder pain. X-rays and clinical examination have been diagnostic for advanced osteoarthritis of the left shoulder. After failing conservative treatment, he has elected proceed with a left total shoulder arthroplasty. Allergies Allergy/AdvReac Type Severity Reaction Status Date / Time No Known Allergies Allergy Verified 08/17/20 08:48 Home Medications Home Medications Medication Instructions Recorded Confirmed Type BD Ultra-Fine Short Pen Needle 31 #100 ea NS 02/17/20 07/03/20 Rx gauge x 5/16" blood sugar diagnostic #100 ea 04/12/20 07/03/20 Rx amlodipine 5 mg tablet 5 mg PO QAM #90 tab 06/20/20 08/22/20 Rx lisinopril 20 1 tab PO QAM #90 tab 06/20/20 08/22/20 Rx mg-hydrochlorothiazide 25 mg tablet metformin 1,000 mg tablet 1,000 mg PO BID #180 tab 07/03/20 08/22/20 Rx levothyroxine 50 mcg tablet 50 mcg PO QAM #90 tab 07/09/20 08/22/20 Rx Lantus Solostar U-100 Insulin 50 unit SQ HS 08/15/20 08/22/20 History ascorbic acid (vitamin C) 500 mg PO QPM 08/15/20 08/22/20 History atorvastatin 10 mg PO QAM 08/15/20 08/22/20 History ferrous sulfate 325 mg PO QAM 08/15/20 08/22/20 History lisinopril 20 mg PO QAM 08/15/20 08/22/20 History pantoprazole 40 mg PO QAM 08/22/20 08/22/20 History Past Med/Surg History Medical History Amnesia, global, 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 Biopsy (05/06) benign. History of dysphagia Has had issues with food getting stuck, has had a few EGD dilations Hyperlipidemia Hypertension Hypothyroidism Surgical History History of esophagogastroduodenoscopy (EGD) History of prostate biopsy History of right cataract extraction Hx of colonoscopy WITH POLYPECTOMY, 07/2017 Hx of knee surgery RT Status post replacement of right shoulder joint (~04/2020) [place] teeth removed Family History Sister Family hx of colon cancer Diabetes Anxiety Depression Family history of diabetes mellitus Family/Other Prostate cancer Brother Diabetes Kidney disease Father , age 44 Brain tumor Mother , age 75 Stomach cancer at age 75 Family history of diabetes mellitus Other No family history of adverse response to anesthesia Denies family history of Ovarian cancer Myocardial infarction Breast cancer Hypertension Social History Smoking Status: Former smoker Age Started Using Tobacco: 23; Age Quit Using Tobacco: 29; packs per day: 0.5; Years Smoked: 6; Second Hand Exposure: No; Hx Alcohol Use: Yes Alcohol type: wine Hx Substance Use: No Preferred Language: Welsh Communication Ability: Effective Visual Impairment: No Limitations Hearing Ability: Normal Portfolio Assistant Required: No Beliefs That Will Affect Care: None marital status: Current Living Situation: Spouse current occupational status: retired current occupation: teacher other: Previous Service Feels Safe at Home: Yes Childhood Exposure to Second-Hand Smoke: Yes caffeine: Yes Dental Care, Regularly: Yes Physical Activity Frequency: 1-2 Times per Week Seatbelt Use: always Sunscreen Use: Yes Assistive Devices: None Review of Systems Review of Systems: All systems reviewed & are unremarkable except as noted in HPI & below Physical Exam Constitutional: WD/WN, vitals as above Eyes: PERRL, conjunctivae normal, anicteric sclerae ENMT: external ear and nose normal, oropharynx normal Neck: trachea midline, no thyromegaly Respiratory: normal respiratory effort Cardiovascular: RRR, no murmur, no edema Gastrointestinal (Abdomen): normal bowel sounds, soft, nontender, no hepatosplenomegaly Musculoskeletal: Physical examination of the left shoulder reveals decreased range of motion and crepitis throughout. There is good strength with full can testing and external rotation. There is tenderness palpation along the anterior glenohumeral joint line. The right upper extremity is neurovascularly intact. Psychiatric: A+Ox3, euthymic affect Results & Data Results & Data ([facility]) Diagnostic Findings Radiographs of the left shoulder show osteoarthritis of the glenohumeral joint. There is joint space narrowing, osteophyte formation, and [id number] articulation. PG Care Time/CCT Total # of Minutes Spent Total Time Spent with Patient: Total time spent is greater than 50% in coordination of care (as documented) at patient's floor/unit and/or counseling patient: Coding Level of Care Code None Diagnoses Osteoarthritis of left shoulder M19.012
[~2020-08-24 08:38] MED LIST changes: -CEFAZOLIN 1000MG 1,000 MG/7.5 ML SYR IV SCH; -GLYCOPYRROLATE 0.2 MG/ML VIAL ONE; -LIDOCAINE HCL 2% 2 ML VIAL/AMP(20MG/ML) INFIL ONE; -MIDAZOLAM HCL 1 MG/ML 2ML VIAL ONE; -NEOSTIGMINE METHYLSULFATE 5 MG/5 ML SYR ONE; -ONDANSETRON INJ 2 MG/ML 2 ML VIAL ONE; -PROPOFOL IV EMULSION 10 MG/ML 20 ML VIAL IV ONE; +ROPIVACAINE 0.5% HCL/PF 150 MG, BUPIVACAINE 0.5% MPF 30 ML, EPINEPHrine 30MG/30ML (OR U... INFIL SCH; -ROPIVACAINE 0.5% HCL/PF 150 MG, BUPIVACAINE 0.5% MPF 30 ML, EPINEPHrine 30MG/30ML (OR U... INSTIL SCH; +ceFAZolin 1000MG 1,000 MG/7.5 ML SYR IV SCH; -fentaNYL citrate 100 MCG/2 ML VIAL ONE
[2020-08-24] MEDS ORDERED: MIDAZOLAM HCL 1 MG/ML 2ML VIAL ONE (09:08)
[2020-08-24] MEDS ORDERED: fentaNYL citrate 100 MCG/2 ML VIAL ONE (09:08)
[2020-08-24] MEDS ORDERED: PROPOFOL IV EMULSION 10 MG/ML 20 ML VIAL IV ONE (09:09)
[2020-08-24] MEDS ORDERED: ONDANSETRON INJ 2 MG/ML 2 ML VIAL ONE (09:09)
--- NOTE | 2020-08-24 09:16 | History & Physical Bridge Note ---
Date of Service August 24, 2020 History & Physical Bridge Note I have examined the patient, reviewed the History & Physical and in the interval since the performance of the History & Physical I have noted the following changes of clinical significance: no changes noted
[2020-08-24] MEDS ORDERED: ORTHO JOINT ANESTHETIC ONE (10:17)
[2020-08-24] MEDS ORDERED: ePHEDrine sulfate 50 MG/ML AMP IV PRN (10:18)
[2020-08-24] MEDS ORDERED: ATROPINE SULFATE 0.1 MG/ML 10ML SYR IV PRN (10:18)
[2020-08-24] MEDS ORDERED: ONDANSETRON INJ 2 MG/ML 2 ML VIAL IV PRN ×2 (10:18→13:45)
[2020-08-24] MEDS ORDERED: fentaNYL citrate 100 MCG/2 ML VIAL IV PRN (10:18)
[2020-08-24] MEDS ORDERED: NEOSTIGMINE METHYLSULFATE 5 MG/5 ML SYR ONE (12:14)
[2020-08-24] MEDS ORDERED: GLYCOPYRROLATE 0.2 MG/ML VIAL ONE (12:14)
[2020-08-24] MEDS ORDERED: DEXAMETHASONE SOD INJ 4 MG/ML VIAL ONE (12:14)
--- NOTE | 2020-08-24 12:25 | Operative Report ---
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 X-rays and clinical examination were diagnostic for advanced osteoarthritis of the left shoulder. After failing conservative treatment, he elected proceed with a left total shoulder arthroplasty. He did have a right shoulder replacement done about 4 months ago and did very well with that. Description of Procedure A CPT code modifier 59: The long head of the biceps tendon was enlarged and inflamed consistent with tendinopathy. A tenodesis was opted. This was a separate and distinct portion of the procedure. For these reasons, a CPT code modifier 59 will be added to this case. Implants used: I used a ZimmerBiomet Comprehensive total shoulder arthroplasty system with a size 13 press fit micro humeral stem, a size 50 x 24 eccentric humeral head, and a size 3 augmented glenoid with a trabecular metal peg. The glenoid was cemented in place with Palacos G cement. Humble arrived at [facility] for the above procedure. He was seen in the preoperative holding area and the operative extremity was identified and signed. He was given a preoperative antibiotic, TXA, and an interscalene nerve block. He was taken back to the operating room, laid on table in supine position, and put under general anesthesia. He was then put into the beachchair position. The shoulder was then prepped and draped in sterile fashion. A timeout was done and the patient and the operative extremity was properly identified. A deltopectoral approach was used. Dissection was taken down through the fascia and the deltoid was retracted laterally and the conjoined tendon was retracted medially. The anterior shoulder was exposed. The biceps groove was opened up and the biceps tendon was examined extensively. The biceps tendon demonstrated enlargement and inflammatory changes consistent with longstanding inflammation in the context of osteoarthritis. The long head of the biceps tendon was then tenodesed to the upper border of the pectoralis major. This was a separate and distinct portion of the procedure. The subscapularis was then released off the lesser tuberosity with a centimeter of cuff tissue remaining. The inferior capsule was released and the humeral head was dislocated. The rotator cuff was inspected and intact. A canal finding reamer was sent down the center of the humeral canal. Sequential reaming up to a size 13 reamer was done. Offset reamer a proximal humeral resection guide was placed. The proximal humerus was resected at 135 of inclination and 30 of retroversion. Inferior osteophytes were then removed and the glenoid was exposed. Time was spent doing an appropriate labral release. The glenoid measured to be a size 3 augmented. A ZimFandium Signature One guide was then attached onto the anterior rim of the glenoid. A 3.2 mm Steinmann pin was then placed in the total shoulder arthroplasty hole. The glenoid was then reamed with a propeller reamer. The central post cutter was then used to prepare for the central boss. The cannulated peripheral peg drill guide was then placed and 3 peg holes were drilled. The final size 3 augmented glenoid was then cemented in place with Palacos G cement. Surrounding soft tissues were then injected with 100 cc of an orthopedic pain control cocktail. Once cement had dried the proximal humerus was once again exposed. Sequential broaching of the humerus up to a size 13 broach was done. Off that broach a size 50 x 24 eccentric humeral head was trialed. The shoulder was then reduced, brought through a full range of motion, and felt to be stable. The shoulder was then dislocated and the broach was removed. The final size 13 micro humeral stem implant was then impacted into place. A size 50 x 24 eccentric humeral head was then impacted onto the humeral stem. The shoulder was then reduced and once again brought through a full range of motion and felt to be stable. The subscapularis was then tenodesed back to the lesser tuberosity with transosseous FiberWire sutures and side to side sutures with the arm in 45 of external rotation. 2 sutures were placed in the lateral rotator interval. A dilute betadyne lavage was then done for 3 minutes. The joint was then irrigated with normal saline solution. Hemostasis was obtained. The interval was closed with 2-0 Vicryl suture. The skin was closed with 2-0 Vicryl and sheela. A Silverlon dressing was placed and the arm was rested in a regular arm sling. He was then extubated and transferred to a hospital bed. He was taken to the postanesthesia care unit in stable condition. He tolerated the procedure well. Lyle Vazquez PA-C, was present for the entire procedure. He was critical for pa tient positioning, prepping, draping, retraction exposure, wound closure and application of sterile dressing. I attest to the content of the Intraoperative Record and any orders documented therein. Any exceptions are noted below.
--- NOTE | 2020-08-24 13:13 | XRay Report ---
XR shoulder LT min 2V routine CLINICAL HISTORY: Post shoulder surgery COMPARISON: CT of the left shoulder July 12, 2020. FINDINGS: Alignment of the left shoulder arthroplasty is anatomic. There is no periprosthetic fractu re. There is no unexpected radiopaque foreign body. There are skin sheela. Linear left basilar opaci ty represents atelectasis. IMPRESSION: Expected findings following left shoulder arthroplasty. ACT 112: Negative or not required by law. Electronically signed by: Timothy Hagen M.D. 08/24/2020 1:11 PM
--- NOTE | 2020-08-24 13:20 | Anesthesiology Progress Note ---
Date of Service August 24, 2020 Anesthesia Post Procedure Vital Signs Vital Signs: Temp Pulse Pulse Resp BP Pulse Ox 08/24/20 13:15 75 19 154/82 H 99 08/24/20 13:05 70 19 155/82 H 98 08/24/20 12:55 73 17 162/89 H 100 08/24/20 12:47 97.2 F L 70 14 180/88 H 100 08/24/20 09:29 98.1 F 58 L 16 132/79 98 Transfer of Care Handoff Completed per policy Notes Mental Status: alert / awake / arousable and participated in evaluation Patient Amnestic to Procedure: Yes Nausea / Vomiting: adequately controlled Pain: adequately controlled Airway Patency, RR, SpO2: stable & adequate BP & HR: stable & adequate Hydration State: stable & adequate Anesthetic Complications: no major complications apparent and Pt Satisfied with anesthetic care
[2020-08-24] MEDS ORDERED: NALOXONE HCL 0.4 MG/1 ML VIAL/CARP IV PRN (13:45)
[2020-08-24] MEDS ORDERED: MAGNESIUM HYDROXIDE SUSP 30 ML UDC PO PRN (13:45)
[2020-08-24] MEDS ORDERED: bisacodyL 10 MG SUPP PR PRN (13:45)
[2020-08-24] MEDS ORDERED: METOCLOPRAMIDE HCL INJ 5 MG/ML 2 ML VIAL IV PRN (13:45)
[2020-08-24] MEDS ORDERED: oxyCODONE HCL IR 5 MG TAB (IMMEDIATE RELEASE) PO PRN (13:45)
[2020-08-24] MEDS ORDERED: HYDROmorphone INJ 0.5 MG/0.5 ML SYR IV PRN (13:45)
[2020-08-24] MEDS: SODIUM CHLORIDE 0.9% 1000ML 1,000 ML IV SCH (14:02)
[2020-08-24] MEDS ORDERED: PHARMACY GLYCEMIC MGMT CONSULT SCH (14:18)
[2020-08-24] MEDS ORDERED: CARBOHYDRATES FOR HYPOGLYCEMIA PO PRN (14:30)
[2020-08-24] MEDS ORDERED: DEXTROSE 50% 50 ML SYRINGE IV PRN (14:30)
[2020-08-24] MEDS ORDERED: GLUCOSE 40% GEL 15 GM TUBE PO PRN (14:30)
[2020-08-24] MEDS ORDERED: NovoLIN-N (NPH) PER UNIT CHARGE SQ ONE (14:30)
[2020-08-24] MEDS ORDERED: GLUCAGON FOR INJ 1 MG VIAL IM PRN (14:30)
[2020-08-24] MEDS ORDERED: GLUCOSE 10 TABS/TUBE PO PRN (14:30)
--- NOTE | 2020-08-24 14:31 | Pharmacy Report ---
Glycemic Control Consultation - Date of Service August 24, 2020 - Scope Scope: Glycemic Pharmacist consulted for glycemic control and to write orders per [facility] inpatient glycemic control protocol. - Objective Weight: 78.2 kg Accuchecks BSG (last 24hrs): 08/24/20 08/24/20 09:08 12:54 POC Glucose 124 H 154 H - Recent Pertinent Medications Outpatient Anti-diabetic Regimen: * Lantus 50 units SQ HS * Metformin 1000mg PO BID * A1c = 8.1 % 07/02/20 Risk Factors for Insulin Resistance: * Steroids: Dexamethasone 8mg PO + 4mg IV Preop * Recent Surgery: s/p total shoulder arthroplasty * Diet: Type 2 DM - Assessment & Plan Assessment & Plan: ASSESSMENT: * 74 yo M s/p Right Total Shoulder Arthroplasty. Pharmacy is consulted for post- operative glycemic management. * Patient maintained on Lantus + Metformin outpatient. ADA & AACE recommend a goal blood sugar range 140-180 mg/dl for the majority of critically ill & non- critically ill patients. However, more stringent targets may be selected in individual cases. Will utilize more stringent goal of 110-140mg/dl based on patient age & comorbidities. Additionally, tighter glycemic control is warranted to facilitate wound/infection healing. * Oral agents are not recommended for inpatient use d/t drug interactions, changing PO intake, and difficulty titrating for acute hyper/hypoglycemia. ADA recommends re-initiating outpatient oral agents 1-2 days prior to discharge if/when appropriate if they were held on admission. * Patient did receive dexamethasone pre-operatively. Will give NPH dose to cover effects on blood sugar. * Will resume patient's home Lantus dose of 50 units at HS this evening and start patient on a high stress/dose, weight-based, CR/CF, and additional accuchecks overnight. PLAN FOR INPATIENT GLYCEMIC CONTROL: * Holding outpatient oral diabetes medications * Basal insulin * NPH 20 units SQ x 1 dose now * Lantus 50 units SQ HS * Bolus insulin * NovoLog per scale ACHS or Q6hrs while NPO & overnight tonight at 0000 and 0400 * Goal Range: Low 110 mg/dL - High 140 mg/dL * Correction Factor: 20 mg/dL/unit * Nutritional / Prandial insulin per carb ratio of 1 unit per 7 grams CHO consumed * Please note that the plan above was derived based on current level of insulin resistance and hospital stress. These recommendations are appropriate for inpatient admission only. Plan of care upon discharge will need to be reassessed to avoid potential outpatient hypo/hyperglycemia. Thank you.
[2020-08-24] MEDS: INSULIN ASPART 100 UNITS/ML 3 ML PEN SC SCH ×3 (14:38→20:46)
[2020-08-24] MEDS: KETOROLAC TROMETHAMINE 15 MG/ML VIAL IV SCH ×2 (14:39→19:36)
[2020-08-24] MEDS: ACETAMINOPHEN 500 MG TAB PO SCH (17:36)
[2020-08-24] MEDS: ceFAZolin 2000MG 2,000 MG/15 ML SYR IV SCH (18:08)
[2020-08-24] MEDS: DOCUSATE SODIUM 100 MG CAP PO SCH (20:51)
[2020-08-24] MEDS ORDERED: INSULIN GLARGINE SOLOSTAR 100 UNITS/ML 3 ML PEN SC SCH (21:00)
[2020-08-24] MEDS ORDERED: SENNA 8.6 MG TAB PO SCH (21:00)
[2020-08-25] MEDS: INSULIN ASPART 100 UNITS/ML 3 ML PEN SC SCH ×4 (00:13→11:47)
[2020-08-25] MEDS: SODIUM CHLORIDE 0.9% 1000ML 1,000 ML IV SCH (00:47)
[2020-08-25] MEDS: KETOROLAC TROMETHAMINE 15 MG/ML VIAL IV SCH ×2 (02:41→07:42)
[2020-08-25] MEDS: ceFAZolin 2000MG 2,000 MG/15 ML SYR IV SCH (02:41)
[2020-08-25] MEDS: ACETAMINOPHEN 500 MG TAB PO SCH (06:28)
[2020-08-25] MEDS ORDERED: LEVOTHYROXINE SODIUM 50 MCG TABLET PO SCH (06:30)
--- NOTE | 2020-08-25 07:10 | Orthopedic Progress Note ---
Date of Service August 25, 2020 Assessment & Plan (1) Status post replacement of left shoulder joint: Overall he is doing very well. Is not having much pain in the left shoulder. He will be seen by physical therapy this morning for ambulation and range of motion exercises. He can be discharged home later today. He will follow-up with orthopedics in 2 weeks. Present on Admission?: Yes Admission and Anticipated Discharge Date Admission Date: August 24, 2020 Kelly Kate was seen and examined at bedside this morning. Overall is doing very well. Is not having any pain in the left shoulder. He is happy with his progress so far. He was able to get some sleep last night. He has no complaints. Physical Exam Physical Exam: On physical examination of his left shoulder, the dressing is clean and dried. He is wearing his sling as instructed. I am unable to do a neurologic examination because the nerve block is still in effect. Results & Data ([facility]) Vital Signs (Past 12 Hours) Vital Signs Temp Pulse Resp BP Pulse Ox 08/25/20 07:05 36.7 C 72 20 137/87 97 08/25/20 02:48 36.5 C 73 14 135/79 94 08/24/20 22:58 36.5 C 81 16 137/85 97 08/24/20 19:27 36.5 C 93 H 18 152/91 H 94 Diagnostic Findings Postoperative x-rays of the left shoulder show the prosthesis to be in anatomic alignment without any evidence of fracture, dislocation, or loosening. PG Care Time/CCT Total # of Minutes Spent Total Time Spent with Patient: Total time spent is greater than 50% in coordination of care (as documented) at patient's floor/unit and/or counseling patient: Coding Level of Care Code None Diagnoses Status post replacement of left shoulder joint Z96.612
--- NOTE | 2020-08-25 07:12 | Discharge Summary ---
Date of Service August 25, 2020 Admission HPI Per Admitting Provider Humble is a pleasant 74-year-old male who I did a right total shoulder arthroplasty on about 4 months ago. He is done very well with that. Unfortunately he has been dealing with a lot of left shoulder pain. X-rays and clinical examination have been diagnostic for advanced osteoarthritis of the left shoulder. After failing conservative treatment, he has elected proceed with a left total shoulder arthroplasty. Principal Diagnosis Left total shoulder arthroplasty Discharge Data Allergies Allergy/AdvReac Type Severity Reaction Status Date / Time No Known Allergies Allergy Verified 08/24/20 09:16 Consultations 08/24/20 13:45 Consult Case Management - Discharge Planning Routine Procedures Performed Operation Date: 08/24/20 10:50 Actual Procedures p Left Total Shoulder Arthroplasty(Left) - Lyle Nieves DO Ordered Studies 08/24/20 05:00 US - OR guided needle placemen Routine Hospital Course (1) Status post replacement of left shoulder joint: On August 24, 2020 Humble arrived at [facility] and underwent a left shoulder replacement without complication. He had a general anesthetic. Postoperatively he was placed in a sling and transferred to the general orthopedic floors. His hospital course was uneventful. On postop day #1 his H&H was stable and his pain was well controlled. He was able to put his feet well with physical therapy doing ambulation and range of motion exercises. He was then discharged home. He will follow-up with orthopedics in 2 weeks. Total Time Total Time Spent Total Time Spent (In Minutes): 20 Discharge Plan Discharge Items Patient Disposition: Home - Home Health Services Reason For Visit: Left Shoulder Degenerative Joint Disease Discharge Diagnosis: Left shoulder replacement Activity: As commented below Non-emergency contact: Surgeon Call non-emergency contact if: your wound has increased redness and your wound has increased drainage Follow-up/Referrals: Lyle Escalona DO [Primary Care Provider] - Diet: Carb Consistent or DM2 Addtl Attending Provider Instructions: Activity and Therapy Recommendations: * If you are using [facility] then therapy will be provided at your home until they feel you have accomplished all of your goals. * If you are using [facility] then Physical Therapy will be provided until they feel you are ready to start Outpatient Physical Therapy. * If you are not using home therapy then Outpatient Physical Therapy should sta rt about 3-5 days from your day of surgery. Therapy will last about 8-12 weeks * Wear your sling for 3 weeks, unless otherwise instructed. You may remove your sling to shower and to dress, but otherwise, you should be in your sling at all times, including while sleeping * The shoulder replacement is very stable and you can use your hand while in the sling * You were shown a series of exercises in the hospital. Do these exercises daily including the exercises you were shown in physical therapy. Medications: * Narcotic You will likely be sent home from the hospital with a prescription for the narcotic pain medication that worked best throughout your stay. * Other medications may be prescribed for specific circumstances. If you have any questions, please call the office at . * Resume previous home medications unless otherwise instructed Dressing Care: Leave the Silverlon dressing in place for 7 days. After 7 days you may remove the dressing. If the incision is not draining then you may leave the sheela open to air. If there is a little bit of drainage or if the sheela are getting stuck on your clothing then cover the incision with a dry dressing. The sheela will be removed at your 2 week follow-up appointment. Showering: You may shower with the Silverlon dressing in place. Do not let the shower spray hit the dressing directly. Pat the Silverlon dressing dry. If the dressing becomes wet underneath, then simply remove the dressing. Keep the incision dry until you are 7 days out from the day of surgery. After 7 days you may remove the Silverlon dressing and shower with the sheela exposed. Let soapy water run over the sheela and pat them dry. Do not scrub or soak the incision. Things To Watch For: * Drainage from the incision site that occurs more than one week after your surgery. * Increased redness at the incision site. * Fever above 102 degrees Fahrenheit. * Unusual chest pain or shortness of breath. * Call [facility] at with any of the above problems Follow-Up Visit: Follow-up with Dr. Nieves's PA (Lyle Vazquez) 2-3 weeks after your day of surgery. He will remove your sheela and answer any questions. If you have any additional questions or concerns, Dr Nieves is usually in the office at the same time and will be available An appointment was probably scheduled when you signed-up for surgery in the office. If you have any questions call More detailed instructions as well as Frequently Asked Questions were provided in a folder by our office when you signed-up for surgery. Please review these instructions when you get home. If you have any further questions or concerns, please feel free to call the office at [phone] Pending Studies at Discharge: No Stand-Alone Forms: My [facility] Cernium, Smoking Cessation Medications and DC Order Prescriptions: Continued (DME) pen needle, diabetic [BD Ultra-Fine Short Pen Needle] 31 gauge x 5/16" needle See Dose Instructions .ROUTE .MEDSUPPLY Qty: 100 RF: 3 (DME) OneTouch Ultra Blue Test Strip Strip See Dose Instructions .ROUTE .MEDSUPPLY Qty: 100 RF: 3 amlodipine 5 mg tablet 5 mg PO QAM Qty: 90 RF: 3 lisinopril-hydrochlorothiazide 20-25 mg tablet 1 tab PO QAM Qty: 90 RF: 3 levothyroxine 50 mcg tablet 50 mcg PO QAM Qty: 90 RF: 3 metformin 1,000 mg tablet 1,000 mg PO BID Qty: 180 RF: 3 atorvastatin 10 mg tablet 10 mg PO QAM RF: 0 lisinopril 20 mg tablet 20 mg PO QAM RF: 0 ferrous sulfate 325 mg (65 mg iron) tablet 325 mg PO QAM RF: 0 Lantus Solostar U-100 Insulin 100 unit/mL (3 mL) insulin pen 50 unit SQ HS RF: 0 ascorbic acid (vitamin C) 500 mg capsule 500 mg PO QPM RF: 0 pantoprazole 40 mg tablet,delayed release (DR/EC) 40 mg PO QAM RF: 0 Discharge Orders: Discharge Order (Routine); Ordered 08/25/20 Ordered By: Lyle Nieves Admission Data Admit Date/Time: 08/24/20 12:45 Attending Provider: Lyle Nieves Admit Provider: Lyle Nieves Primary Care Provider: Lyle Escalona Coding Level of Care Code D/C Day Management <30 mins Diagnoses Status post replacement of left shoulder joint Z96.612
[2020-08-25] MEDS: DOCUSATE SODIUM 100 MG CAP PO SCH (07:42)
[2020-08-25 07:58] LABS: Hematocrit (blood only) 38.9 % (42-52); Hemoglobin 13.4 g/dL (14.0-18.0); Immature Granulocytes # (auto) 0.02 K/uL (0.00-0.02); Immature Granulocytes % (auto) 0.2 %; Lymphocytes # (auto) 0.59 K/uL (1.2-3.4); Lymphocytes % (auto) 5.2 %; Mean Corpuscular Hemoglobin 27.1 pg (25-34); Mean Corpuscular Hgb Conc 34.4 g/dL (32-36); Mean Corpuscular Volume 78.6 fL (80-100); Monocytes # (auto) 0.72 K/uL (0.11-0.59); Monocytes % (auto) 6.3 %; Neutrophils % (auto) 88.3 %; Platelet Count 209 K/uL (130-400); RDW Coefficient of Variation 13.6 % (11.5-14.5); RDW Standard Deviation 38.4 fL (36.4-46.3); Red Blood Count 4.95 M/uL (4.7-6.1); White Blood Count 11.43 K/uL (4.8-10.8)
[2020-08-25 08:30] LABS: BUN Creatinine Ratio 16.1 (10-20); Calcium 8.3 mg/dl (8.5-10.1); Creatinine Clr Calc Pharmacy 63.5 ml/min; Est GFR (African American) 85.1; Est GFR (Non-African American) 73.4; Potassium 3.7 mmol/L (3.5-5.1)
[2020-08-25] MEDS ORDERED: PANTOprazole 40 MG TAB PO SCH (09:00)
[2020-08-25] MEDS ORDERED: lisinopril 20 MG TAB PO SCH (09:00)
[2020-08-25] MEDS ORDERED: LISINOPRIL/HCTZ 20/25MG 1 TAB PO SCH (09:00)
[2020-08-25] MEDS ORDERED: MULTIVITAMIN TAB PO SCH (09:00)
[2020-08-25] MEDS ORDERED: amLODIPine BESYLATE 5 MG TAB PO SCH (09:00)
[2020-08-25] MEDS ORDERED: FERROUS SULFATE 325 MG TAB PO SCH (09:00)
[2020-08-25] MEDS ORDERED: ATORVASTATIN 10 MG TAB PO SCH (09:00)
[2020-08-25 11:18] VITALS: BP 131/64; PULSE 73; TEMP 97.9; O2SAT 95
== END 2020-08-25 12:56 | disposition home health service (06) | DRG 483 ==
LOC: ASU 08:38 → 3E 12:45

== ENCOUNTER 2020-12-28 09:02 | Observation (INO) ==
--- NOTE | 2020-11-23 10:56 | PAT Medication Instructions ---
Medication Instructions Date of Service November 23, 2020 Home Medications Medication Instructions Recorded BD Ultra-Fine Short Pen Needle 31 #100 ea NS 02/17/20 gauge x 5/16" amlodipine 5 mg tablet 5 mg PO QAM #90 tab 06/20/20 lisinopril 20 1 tab PO QAM #90 tab 06/20/20 mg-hydrochlorothiazide 25 mg tablet metformin 1,000 mg tablet 1,000 mg PO BID #180 tab 07/03/20 levothyroxine 50 mcg tablet 50 mcg PO QAM #90 tab 07/09/20 pantoprazole 40 mg tablet,delayed 40 mg PO BID #60 tab 09/05/20 release ferrous sulfate 325 mg (65 mg 325 mg PO QAM #90 tab 09/17/20 iron) tablet blood sugar diagnostic #100 ea 11/15/20 dulaglutide 1.5 mg/0.5 mL 1.5 mg SUBCUT .qweek #2 ml 11/15/20 subcutaneous pen injector amlodipine 5 mg tablet 5 mg PO QAM lisinopril 20 mg-hydrochlorothiazide 25 mg tablet 1 tab PO QAM metformin 1,000 mg tablet 1,000 mg PO BID levothyroxine 50 mcg tablet 50 mcg PO QAM ascorbic acid (vitamin C) 500 mg PO QPM atorvastatin 10 mg PO QAM lisinopril 20 mg PO QAM pantoprazole 40 mg tablet,delayed release 40 mg PO BID ferrous sulfate 325 mg (65 mg iron) tablet 325 mg PO QAM insulin glargine 100 unit/mL (3 mL) subcutaneous pen 30 unit SQ HS dulaglutide 1.5 mg/0.5 mL subcutaneous pen injector 1.5 mg SUBCUT .qweek Continue as directed dulaglutide 1.5 mg/0.5 mL subcutaneous pen injector 1.5 mg SUBCUT .qweek DO NOT take the morning of surgery lisinopril 20 mg-hydrochlorothiazide 25 mg tablet 1 tab PO QAM metformin 1,000 mg tablet 1,000 mg PO BID lisinopril 20 mg PO QAM ferrous sulfate 325 mg (65 mg iron) tablet 325 mg PO QAM Take morning of surgery With a small sip of water, OTHERWISE NOTHING TO EAT OR DRINK AFTER MIDNIGHT: amlodipine 5 mg tablet 5 mg PO QAM levothyroxine 50 mcg tablet 50 mcg PO QAM atorvastatin 10 mg PO QAM pantoprazole 40 mg tablet,delayed release 40 mg PO BID Take evening before surgery metformin 1,000 mg tablet 1,000 mg PO BID ascorbic acid (vitamin C) 500 mg PO QPM pantoprazole 40 mg tablet,delayed release 40 mg PO BID insulin glargine 100 unit/mL (3 mL) subcutaneous pen 30 unit SQ HS Other Notes If you have any questions please call us at [phone] or [phone] or [phone] or [phone]
--- NOTE | 2020-11-28 09:10 | Anesthesiology Consultation ---
Date of Service November 28, 2020 Assessment & Plan (1) Encounter for pre-operative examination: - Per assessment on 11/28: Travel screen negative. No known COVID-19 positive contacts or current COVID-19 related symptoms. Surgeon arranging preop COVID testing. Awaiting results. - Check BSG AM DOS - Left total shoulder arthroplasty: 08/24/20: Attempt x1 DL MAC 3 (grade 3 view) > Attempt x1 DL In[place]#3 (grade 2 view), ETT 7 + PNB at [facility] - Concerns RE: SAB- discussed SAB vs. GA. Patient voiced understanding. Questions/concerns addressed. Patient states he will call if any further questions. Chart Review Chart Review: Acceptable Risk for Surgery and Patient seen in Pre Admission T esting Teaching & Discussion Pre-Anesthesia Teaching/Discussion Notes: Instructed NPO after midnight before surgery,except medications with 15 cc of water. Medication instructions provided according to the PAT guidelines. History Surgery Operation Date: 12/28/20 07:15 Proposed Procedures p Right Total Knee Arthroplasty - Lyle Nieves, Height/Weight Height: 5 ft 6 in Weight: 80.9 kg Allergies Allergy/AdvReac Type Severity Reaction Status Date / Time No Known Allergies Allergy Verified 11/15/20 10:06 Medications Home Medications Medication Instructions Recorded Confirmed Last Taken BD Ultra-Fine Short Pen Needle 31 #100 ea NS 02/17/20 11/15/20 Unknown gauge x 5/16" amlodipine 5 mg tablet 5 mg PO QAM #90 tab 06/20/20 11/15/20 08/24/20 06:30 lisinopril 20 1 tab PO QAM #90 tab 06/20/20 11/15/20 08/23/20 08:30 mg-hydrochlorothiazide 25 mg tablet metformin 1,000 mg tablet 1,000 mg PO BID #180 tab 07/03/20 11/15/20 08/23/20 22:00 levothyroxine 50 mcg tablet 50 mcg PO QAM #90 tab 07/09/20 11/15/20 08/24/20 06:30 ascorbic acid (vitamin C) 500 mg PO QPM 08/15/20 11/15/20 08/17/20 atorvastatin 10 mg PO QAM 08/15/20 11/15/20 08/23/20 08:30 lisinopril 20 mg PO QAM 08/15/20 11/15/20 08/23/20 08:30 pantoprazole 40 mg tablet,delayed 40 mg PO BID #60 tab 09/05/20 11/15/20 Unknown release ferrous sulfate 325 mg (65 mg 325 mg PO QAM #90 tab 09/17/20 11/15/20 Unknown iron) tablet insulin glargine 100 unit/mL (3 30 unit SQ HS ml 10/09/20 11/15/20 Unknown mL) subcutaneous pen blood sugar diagnostic #100 ea 11/15/20 11/15/20 Unknown dulaglutide 1.5 mg/0.5 mL 1.5 mg SUBCUT .qweek #2 ml 11/15/20 11/15/20 Unknown subcutaneous pen injector Past Medical History Medical History (Updated 11/28/20 @ 10:09 by Charmaine Nogueira) Amnesia, global, 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 s/p unremarkable workup, no issues since Diabetes mellitus, type II IDDM Elevated PSA under surveillance by urology, s/p benign biopsy (05/06) History of dysphagia S/P EGD with dilation, no recent issues Hyperlipidemia Hypertension Hypothyroidism Exercise / Class Metabolic Activity II 4-5 Yardwork/Stairs/Walk up hill Past Family History Family History Sister Family hx of colon cancer Diabetes Anxiety Depression Family history of diabetes mellitus Family/Other Prostate cancer Brother Diabetes Kidney disease Father , age 44 Brain tumor Mother , age 75 Stomach cancer at age 75 Family history of diabetes mellitus Other No family history of adverse response to anesthesia Denies family history of Ovarian cancer Myocardial infarction Breast cancer Hypertension Past Surgical History Surgical History (Updated 11/28/20 @ 10:07 by Charmaine Nogueira) History of esophagogastroduodenoscopy (EGD) History of prostate biopsy History of right cataract extraction Hx of colonoscopy + polypectomy Hx of knee surgery Right Status post replacement of left shoulder joint Left total shoulder arthroplasty: 08/24/20: Attempt x1 DL MAC 3 (grade 3 view) > Attempt x1 DL Inman#3 (grade 2 view), ETT 7 + PNB at [facility] Status post replacement of right shoulder joint [place] teeth removed Past Anesthesia History No Hx of Anesthesia Complications and No Family Hx of Anesthesia Complications Social History Smoking Status: Former smoker tobacco type: cigarettes Do You Dip or Chew Tobacco: No Smoking End Date: Quit in 1974 Hx Alcohol Use: Yes Alcohol type: wine alcohol intake frequency: 0-2 drinks per day (1 drink/day) Hx Substance Use: No substance use type: does not use Review of Systems + intermittent snoring (no witnessed apnea events) Patient denies chest pain, shortness of breath, dyspnea on exertion, fever, chills, cough, wheezing, palpitations. Physical Exam Vital Signs VITALS BP 121/79 P 63 TEMP 98.1 SP02 98%RA RESP 16 PHYSICAL Full neck and c-spine range of motion. Full TMJ range of motion. TMD 3 finger breaths Mallampati Score 1 Dentition: intact, +crowns several all over Lungs: clear throughout to auscultation Cardiac: regular rate and rhythm, no murmurs noted Spine: normal Carotid arteries: negative bruit Extremities: no edema Testing Laboratory Results 11/28/20 09:52 11/28/20 09:52 PT 10.0 Seconds (9.0-12.0) 11/28/20 09:52 INR 1.0 (0.9-1.1) 11/28/20 09:52 APTT 27.3 Seconds (21.0-31.0) 02 09:52 Hemoglobin A1c 7.1 % (4.5-5.6) H 11/28/20 09:52 Blood Type O Negative 11/28/20 09:52 Antibody Screen NEGATIVE 11/28/20 09:52 Electrocardiogram Date: 11/28/20 NSR at 63bpm. Cannot r/o anterior infarct, age undetermined (similar findings per 11/23/2019 EKG). NS TWA. Chest X-Ray Date: 11/28/20 FINDINGS: The cardiac and mediastinal contours are normal. There is no evidence of focal pulmonary consolidation. There is no evidence of failure. No pleural effusions are visualized.[There are bilateral shoulder arthroplasties. There is a tiny metallic foreign body projected over the left lower lobe, unchanged from the prior study. IMPRESSION: No active disease in the chest.
[2020-11-28 10:36] LABS: Basophils # (auto) 0.02 K/uL (0-0.2); Basophils % (auto) 0.3 %; Eosinophils # (auto) 0.13 K/uL (0-0.5); Eosinophils % (auto) 2.2 %; Hematocrit (blood only) 42.5 % (42-52); Immature Granulocytes # (auto) 0.01 K/uL (0.00-0.02); Immature Granulocytes % (auto) 0.2 %; Lymphocytes # (auto) 1.59 K/uL (1.2-3.4); Lymphocytes % (auto) 27.5 %; Mean Corpuscular Hemoglobin 27.4 pg (25-34); Mean Corpuscular Hgb Conc 35.3 g/dL (32-36); Mean Corpuscular Volume 77.7 fL (80-100); Mean Platelet Volume 9.2 fL (7.4-10.4); Monocytes # (auto) 0.44 K/uL (0.11-0.59); Monocytes % (auto) 7.6 %; Neutrophils % (auto) 62.2 %; Platelet Count 196 K/uL (130-400); RDW Standard Deviation 36.8 fL (36.4-46.3); Red Blood Count 5.47 M/uL (4.7-6.1); White Blood Count 5.79 K/uL (4.8-10.8)
--- NOTE | 2020-11-28 10:47 | XRay Report ---
XR chest Pre-admission PA/Lat CLINICAL HISTORY: Preoperative chest COMPARISON STUDY: 11/23/2019 FINDINGS: The cardiac and mediastinal contours are normal. There is no evidence of focal pulmonary co nsolidation. There is no evidence of failure. No pleural effusions are visualized.[There are bilatera l shoulder arthroplasties. There is a tiny metallic foreign body projected over the left lower lobe, unchanged from the prior study. IMPRESSION: No active disease in the chest. ACT 112: Negative or not required by law. Electronically signed by: Geo Yeboah M.D. 11/28/2020 10:46 AM
[2020-11-28 10:48] LABS: Partial Thromboplastin Time 27.3 Seconds (21.0-31.0)
[2020-11-28 11:03] LABS: Estimated Average Glucose 157 mg/dl; Hemoglobin A1C 7.1 % (4.5-5.6)
[2020-11-28 12:40] LABS: BUN Creatinine Ratio 17.4 (10-20); Calcium 8.9 mg/dl (8.5-10.1); Creatinine Clr Calc Pharmacy 72.2 ml/min; Est GFR (African American) 96.6; Est GFR (Non-African American) 83.3; Potassium 4.4 mmol/L (3.5-5.1)
--- NOTE | 2020-11-28 13:01 | Electrocardiogram Report ---
Test Reason : Blood Pressure : / mmHG Vent. Rate : 063 BPM Atrial Rate : 063 BPM P-R Int : 152 ms QRS Dur : 078 ms QT Int : 414 ms P-R-T Axes : 047 060 -09 degrees QTc Int : 423 ms Normal sinus rhythm Cannot rule out Anterior infarct , age undetermined Abnormal ECG When compared with ECG of 23-NOV-2019 10:23, Inverted T waves have replaced nonspecific T wave abnormality in Inferior leads Confirmed by Tyler Laura ([id number]) on 11/28/2020 1:01:17 PM Referred By: Lyle Nieves Confirmed By:Tyler Laura
--- NOTE | 2020-12-27 08:16 | History & Physical Report ---
Date of Service December 27, 2020 Assessment & Plan (1) Osteoarthritis of right knee: We will proceed with a right total knee arthroplasty. Postoperatively he will be started on aspirin for DVT prophylaxis and kept overnight in the hospital for postoperative medical management. He plans to use energy physical therapy upon discharge. History of Present Illness Chief Complaint: Osteoarthritis of the right knee Primary Care Provider: Lyle EscalonaDO Kate is a pleasant 75-year-old male who is been dealing with chronic increasing right knee pain. X-rays and clinical examination have been diagnostic for advanced osteoarthritis of the right knee. He does have a history of a right knee arthroscopy done by Dr. Jett garza about 10 to 12 years ago. After failing conservative treatment, he has elected to proceed with a right total knee arthroplasty.. . Allergies Allergy/AdvReac Type Severity Reaction Status Date / Time No Known Allergies Allergy Verified 11/15/20 10:06 Home Medications Medication Instructions Recorded Confirmed Type BD Ultra-Fine Short Pen Needle 31 #100 ea NS 02/17/20 11/15/20 Rx gauge x 5/16" amlodipine 5 mg tablet 5 mg PO QAM #90 tab 06/20/20 11/15/20 Rx lisinopril 20 1 tab PO QAM #90 tab 06/20/20 11/15/20 Rx mg-hydrochlorothiazide 25 mg tablet metformin 1,000 mg tablet 1,000 mg PO BID #180 tab 07/03/20 11/15/20 Rx levothyroxine 50 mcg tablet 50 mcg PO QAM #90 tab 07/09/20 11/15/20 Rx ascorbic acid (vitamin C) 500 mg PO QPM 08/15/20 11/15/20 History atorvastatin 10 mg PO QAM 08/15/20 11/15/20 History pantoprazole 40 mg tablet,delayed 40 mg PO BID #60 tab 09/05/20 11/15/20 Rx release ferrous sulfate 325 mg (65 mg 325 mg PO QAM #90 tab 09/17/20 11/15/20 Rx iron) tablet blood sugar diagnostic #100 ea 11/15/20 11/15/20 Rx dulaglutide 1.5 mg/0.5 mL 1.5 mg SUBCUT .qweek #2 ml 11/15/20 11/15/20 Rx subcutaneous pen injector insulin glargine 100 unit/mL (3 20 unit SQ HS #15 ml 12/03/20 Rx mL) subcutaneous pen lisinopril 20 mg tablet 20 mg PO QAM #90 tab 12/25/20 Rx Past Med/Surg History Medical History Amnesia, global, 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 s/p unremarkable workup, no issues since Diabetes mellitus, type II IDDM Elevated PSA under surveillance by urology, s/p benign biopsy (05/06) History of dysphagia S/P EGD with dilation, no recent issues Hyperlipidemia Hypertension Hypothyroidism Surgical History History of esophagogastroduodenoscopy (EGD) History of prostate biopsy History of right cataract extraction Hx of colonoscopy + polypectomy Hx of knee surgery Right Status post replacement of left shoulder joint Left total shoulder arthroplasty: 08/24/20: Attempt x1 DL MAC 3 (grade 3 view) > Attempt x1 DL In[place]#3 (grade 2 view), ETT 7 + PNB at [facility] Status post replacement of right shoulder joint [place] teeth removed Family History Sister Family hx of colon cancer Diabetes Anxiety Depression Family history of diabetes mellitus Family/Other Prostate cancer Brother Diabetes Kidney disease Father , age 44 Brain tumor Mother , age 75 Stomach cancer at age 75 Family history of diabetes mellitus Other No family history of adverse response to anesthesia Denies family history of Ovarian cancer Myocardial infarction Breast cancer Hypertension Social History Smoking Status: Former smoker Age Started Using Tobacco: 23; Age Quit Using Tobacco: 29; packs per day: 0.5; Years Smoked: 6; Smoking End Date: Quit in 1974; Second Hand Exposure: Yes (IN THE PAST); Do You Dip or Chew Tobacco: No; Tobacco Cessation Education Requested by Patient: No Hx Alcohol Use: Yes Alcohol type: wine Hx Substance Use: No Preferred Language: Turkmen Communication Ability: Effective Visual Impairment: No Limitations Hearing Ability: Normal Sales Solutions Representative Required: No Beliefs That Will Affect Care: None marital status: Current Living Situation: Family Current Living Situation Comment: AND SON current occupational status: retired current occupation: teacher other: Previous Service Feels Safe at Home: Yes Safety Concerns: Feels Safe At This Time Childhood Exposure to Second-Hand Smoke: Yes caffeine: Yes Dental Care, Regularly: Yes Physical Activity Frequency: 1-2 Times per Week Seatbelt Use: always Sunscreen Use: Yes Assistive Devices: None Review of Systems All systems reviewed & are unremarkable except as noted in HPI & below. Physical Exam On physical examination of the right knee, he is a slight varus deformity. He has a trace effusion. He has range of motion from 0 to 120 degrees. He has no instability.. Constitutional WD/WN, vitals as above Eyes PERRL, conjunctivae normal, anicteric sclerae ENMT external ear and nose normal, oropharynx normal Neck trachea midline, no thyromegaly Respiratory normal respiratory effort Cardiovascular RRR, no murmur, no edema Gastrointestinal (Abdomen) normal bowel sounds, soft, nontender, no hepatosplenomegaly Psychiatric A+Ox3, euthymic affect Results & Data Results & Data Laboratory Results . Diagnostic Findings X-rays of the right knee do show advanced osteoarthritis. It mostly involves the medial compartment.. PG Care Time/CCT Total # of Minutes Spent Total Time Spent with Patient: Total time spent is greater than 50% in coordination of care (as documented) at patient's floor/unit and/or counseling patient: Coding Level of Care Code None Diagnoses Osteoarthritis of right knee M17.11
[~2020-12-28 09:02] MED LIST changes: +BUPIVACAINE 0.25% 30 ML VIAL ONE; +LIDOCAINE HCL 2% 2 ML VIAL/AMP(20MG/ML) INFIL ONE; -LR 15ML/HR IV SCH; +LR 500ML BOLUS, THEN 15ML/HR IV SCH; +MIDAZOLAM HCL 1 MG/ML 2ML VIAL ONE; +PROPOFOL IV EMULSION 10 MG/ML 20 ML VIAL IV ONE; -ROPIVACAINE 0.5% HCL/PF 150 MG, BUPIVACAINE 0.5% MPF 30 ML, EPINEPHrine 30MG/30ML (OR U... INFIL SCH; +ROPIVACAINE 0.5% HCL/PF 150 MG, BUPIVACAINE 0.75% MPF 20 ML, EPINEPHrine 30MG/30ML (OR ... INSTIL SCH; -ceFAZolin 1000MG 1,000 MG/7.5 ML SYR IV SCH; +ceFAZolin 2000MG 2,000 MG/15 ML SYR IV SCH; +fentaNYL citrate 100 MCG/2 ML VIAL ONE
--- NOTE | 2020-12-28 09:22 | History & Physical Bridge Note ---
Date of Service December 28, 2020 History & Physical Bridge Note I have examined the patient, reviewed the History & Physical and in the interval since the performance of the History & Physical I have noted the following changes of clinical significance: no changes noted
[2020-12-28] MEDS ORDERED: ONDANSETRON INJ 2 MG/ML 2 ML VIAL IV PRN ×2 (10:03→13:40)
[2020-12-28] MEDS ORDERED: ePHEDrine sulfate 50 MG/ML AMP IV PRN (10:03)
[2020-12-28] MEDS ORDERED: ATROPINE SULFATE 0.1 MG/ML 10ML SYR IV PRN (10:03)
[2020-12-28] MEDS ORDERED: fentaNYL citrate 100 MCG/2 ML VIAL IV PRN (10:03)
[2020-12-28] MEDS ORDERED: ORTHO JOINT ANESTHETIC ONE (10:08)
[2020-12-28] MEDS ORDERED: ONDANSETRON INJ 2 MG/ML 2 ML VIAL ONE (11:08)
[2020-12-28] MEDS ORDERED: ePHEDrine sulfate 50 MG/ML SYR ONE (11:08)
[2020-12-28] MEDS ORDERED: PROPOFOL IV EMULSION 10 MG/ML 20 ML VIAL IV ONE ×2 (11:08)
--- NOTE | 2020-12-28 11:53 | Operative Report ---
PG Post Operative Report Pre & Post Diagnosis Operation Date: 12/28/20 11:35 Pre-Op Diagnosis: Right Knee Degenerative Joint Disease Post-Op Diagnosis: Right Knee Degenerative Joint Disease I identified the patient and participated in the time-out.: Yes Procedure Operation Date: 12/28/20 11:35 Actual Procedures p Right Total Knee Arthroplasty, Cemented(Right) - Lyle Nieves DO Surgeon Lyle Nieves DO Director Appointment Lyle Vazquez PAC Estimated Blood Loss 10 Findings Consistent with Post-Op Diagnosis Specimens Right femoral and tibial bone Complications none Disposition Disposition: Recovery Room Indications Humble is a pleasant 75-year-old male who is been dealing with chronic increasing right knee pain. X-rays and clinical examination have been diagnostic for advanced osteoarthritis of the right knee. After failing conservative treatment, he elected to proceed with a right total knee arthroplasty. Description of Procedure Implants used: I used a Mignon Persona total knee arthroplasty system with a size 9 standard femur, F tibia, 32 patella, and a size 11 medial congruent polyethylene bearing. All components were cemented in place with Palacos G cement. Humble arrived [facility] for the above procedure. He was seen in the preoperative holding area and the operative extremity was identified and signed. He was given a preoperative antibiotic, TXA, a spinal anesthetic and an adductor nerve block. He was taken back to the operating room and laid on the table in supine position. He was given basic sedation. The operative knee was then prepped and draped in sterile fashion. A timeout was done, and the patient and the operative extremity was properly identified. A midline incision was made directly over the patella. Dissection was taken d own to the extensor mechanism. A subvastus arthrotomy was used. The medial retinaculum was released and the fat pad was mostly excised. The knee was flexed and the ACL, PCL, and meniscus were removed. A drill was sent down the center of the femoral canal followed by an intramedullary fermín. Off that fermín a distal femoral cutting block was placed. 9 mm was resected off the distal femur at 5 of valgus. A posterior referencing AP sizing guide was then placed on the distal femur. The femur measured to be a size 9 standard. 2 drill holes were placed in 3 of external rotation. A 4-in-1 cutting block was then impacted into place. Anterior, posterior, and chamfer cuts were then made. The proximal tibia was then exposed. An external tibial alignment guide was placed. A tibial cut guide was then anchored in place and the proximal tibia was then resected. The posterior aspect of the knee was then opened up and any additional meniscus fragments and osteophytes were removed. The tibia measured to be a size F. The tibial plate was then placed in the appropriate rotation and the tibia was drilled and punched. Trial components were then placed. I used a size 11 medial congruent polyethylene insert. The knee was brought through a full range of motion and felt to be stable. The peg holes for the femoral component were then drilled. The patella was then everted and 9 mm was resected off the posterior aspect of the patella. The patella measured to be a size 32. 3 peg holes were then drilled. A trial patella was placed. The knee was once again brought through a full range of motion and felt to be stable. Trial components were then removed. The surrounding soft tissues were injected with 100 cc of an orthopedic pain control cocktail. All components were then ce mented into place with Palacos G cement. The final polyethylene insert was then snapped into place. Once cement was dry the tourniquet was deflated. Hemostasis was obtained. A dilute betadyne lavage was then done for 3 minutes. The joint was then irrigated with normal saline solution. The subvastus arthrotomy was then closed with #1 Vicryl suture. The skin was closed with 2-0 Vicryl, 3-0V lock suture, and sheela. A Silverlon and a soft compressive dressing were placed. He was then transferred to a hospital bed and taken to the postanesthesia care unit in stable condition. He tolerated the procedure well. Lyle Vazquez PA-C, was present for the entire procedure. He was critical for patient positioning, prepping, draping, retraction exposure, wound closure and application of sterile dressing. I attest to the content of the Intraoperative Record and any orders documented therein. Any exceptions are noted below.
--- NOTE | 2020-12-28 12:54 | XRay Report ---
RIGHT KNEE 2 VIEWS History: Right total knee arthroplasty. Degenerative arthritis. Postop. FINDINGS: The patient is status post a right total knee arthroplasty. The hardware is intact. No frac ture or dislocation. Skin sheela are in place. IMPRESSION: Right total knee arthroplasty. No evidence for hardware complication. ACT 112: Negative or not required by law. Electronically signed by: Jayden Woodruff M.D. 12/28/2020 12:53 PM
[2020-12-28] MEDS ORDERED: METOCLOPRAMIDE HCL INJ 5 MG/ML 2 ML VIAL IV PRN (13:40)
[2020-12-28] MEDS ORDERED: HYDROmorphone INJ 0.5 MG/0.5 ML SYR IV PRN (13:40)
[2020-12-28] MEDS ORDERED: bisacodyL 10 MG SUPP PR PRN (13:40)
[2020-12-28] MEDS ORDERED: NALOXONE HCL 0.4 MG/1 ML VIAL/CARP IV PRN (13:40)
[2020-12-28] MEDS ORDERED: MAGNESIUM HYDROXIDE SUSP 30 ML UDC PO PRN (13:40)
[2020-12-28] MEDS ORDERED: oxyCODONE HCL IR 5 MG TAB (IMMEDIATE RELEASE) PO PRN (13:40)
[2020-12-28] MEDS ORDERED: GLUCAGON FOR INJ 1 MG VIAL IM PRN (14:00)
[2020-12-28] MEDS ORDERED: GLUCOSE 40% GEL 15 GM TUBE PO PRN (14:00)
[2020-12-28] MEDS ORDERED: CARBOHYDRATES FOR HYPOGLYCEMIA PO PRN (14:00)
[2020-12-28] MEDS ORDERED: GLUCOSE 10 TABS/TUBE PO PRN (14:00)
[2020-12-28] MEDS ORDERED: DEXTROSE 50% 50 ML SYRINGE IV PRN (14:00)
[2020-12-28] MEDS ORDERED: PHARMACY GLYCEMIC MGMT CONSULT SCH (14:20)
[2020-12-28] MEDS ORDERED: NovoLIN-N (NPH) PER UNIT CHARGE SQ ONE (14:30)
--- NOTE | 2020-12-28 14:30 | Pharmacy Report ---
Pharmacy Glycemic Short Note 2 - Date of Service December 28, 2020 - Glycemic Short BSG Results (Last 24 hours): 12/28/20 12/28/20 12/28/20 09:24 12:23 14:01 POC Glucose 128 H 154 H 182 H OUTPATIENT ANTIDIABETIC REGIMEN: * Lantus 20 units SQ HS * Metformin 1 g PO BID * Dulaglutide 1.5mg SQ Weekly (last dose 12/23) ASSESSMENT: * 75 year old s/p TKA, type 2 diabetic, 7.1% A1c, received dexamethasone 8mg po preop. * Patient on metformin and dulaglutide at home, not recommended for inpatient use d/t drug interactions, changing PO intake, and difficulty titrating for acute hyper/hypoglycemia. ADA recommends re-initiating outpatient oral agents 1-2 days prior to discharge if/when appropriate if they were held on admission. * Will utilize SQ basal bolus insulin regimen which is the recommended regimen for inpatient glycemic control. * Will give NPH dose to cover steroids * ADA & AACE recommend a goal blood sugar range 140-180 mg/dl for the majority of critically ill & non-critically ill patients. However, more stringent targets may be selected in individual cases. Will utilize more stringent goal of 110-140mg/dl based on patient age & comorbidities. Additionally, tighter glycemic control is warranted to facilitate wound/infection healing. PLAN FOR INPATIENT GLYCEMIC CONTROL: * Hold outpatient oral diabetes medications * Basal insulin * NPH 20 units SQ x 1 dose now * Lantus 20 units SQ HS * Bolus insulin * NovoLog per scale ACHS or Q6hrs while NPO * Goal Range: Low 110 mg/dL - High 140 mg/dL * Correction Factor: 15 mg/dL/unit * Nutritional / Prandial insulin per carb ratio of 1 unit per 5 grams CHO consumed PLAN FOR DISCHARGE: * A1c 7.1%, continue home regimen
[2020-12-28] MEDS: SODIUM CHLORIDE 0.9% 1000ML 1,000 ML IV SCH (15:05)
[2020-12-28] MEDS: KETOROLAC TROMETHAMINE 15 MG/ML VIAL IV SCH ×2 (15:06→20:21)
[2020-12-28] MEDS: ACETAMINOPHEN 500 MG TAB PO SCH ×2 (15:06→21:15)
[2020-12-28] MEDS: INSULIN ASPART 100 UNITS/ML 3 ML PEN SC SCH ×4 (15:22→21:08)
--- NOTE | 2020-12-28 15:24 | Anesthesiology Progress Note ---
Date of Service December 28, 2020 Anesthesia Post Procedure Vital Signs Vital Signs: Temp Pulse Pulse Pulse Resp BP BP 12/28/20 14:40 36.7 C 70 16 149/81 H 12/28/20 14:02 35.9 C L 76 16 135/85 12/28/20 13:30 36.4 C L 72 16 124/74 12/28/20 13:05 67 18 122/64 12/28/20 12:55 36.3 C L 73 16 126/65 12/28/20 12:45 69 13 130/74 12/28/20 12:35 68 14 110/63 12/28/20 12:25 72 18 130/66 12/28/20 12:15 36.1 C L 76 16 134/65 12/28/20 09:35 36.7 C 63 18 155/81 H Pulse Ox 12/28/20 14:40 99 12/28/20 14:02 100 12/28/20 13:30 97 12/28/20 13:05 95 12/28/20 12:55 96 12/28/20 12:45 95 12/28/20 12:35 96 12/28/20 12:25 100 12/28/20 12:15 100 12/28/20 09:35 99 Transfer of Care Handoff Completed per policy Notes Mental Status: alert / awake / arousable and participated in evaluation Patient Amnestic to Procedure: Yes Nausea / Vomiting: adequately controlled Pain: adequately controlled Airway Patency, RR, SpO2: stable & adequate BP & HR: stable & adequate Hydration State: stable & adequate Neuraxial Anesthesia: was administered and sensory block is resolving Anesthetic Complications: no major complications apparent and Pt Satisfied with anesthetic care
[2020-12-28] MEDS: ceFAZolin 2000MG 2,000 MG/15 ML SYR IV SCH (18:27)
[2020-12-28] MEDS: DOCUSATE SODIUM 100 MG CAP PO SCH (20:21)
[2020-12-28] MEDS: ASPIRIN 81 MG ECTAB PO SCH (20:22)
[2020-12-28] MEDS ORDERED: SENNA 8.6 MG TAB PO SCH (21:00)
[2020-12-28] MEDS ORDERED: INSULIN GLARGINE SOLOSTAR 100 UNITS/ML 3 ML PEN SC SCH (21:00)
[2020-12-29] MEDS: KETOROLAC TROMETHAMINE 15 MG/ML VIAL IV SCH ×2 (02:33→08:23)
[2020-12-29] MEDS: ceFAZolin 2000MG 2,000 MG/15 ML SYR IV SCH (02:33)
[2020-12-29] MEDS: SODIUM CHLORIDE 0.9% 1000ML 1,000 ML IV SCH (03:06)
[2020-12-29] MEDS: ACETAMINOPHEN 500 MG TAB PO SCH (05:07)
[2020-12-29] MEDS ORDERED: LEVOTHYROXINE SODIUM 50 MCG TABLET PO SCH (06:30)
[2020-12-29] MEDS: ASPIRIN 81 MG ECTAB PO SCH (08:22)
[2020-12-29] MEDS: DOCUSATE SODIUM 100 MG CAP PO SCH (08:22)
--- NOTE | 2020-12-29 08:23 | Orthopedic Progress Note ---
Date of Service December 29, 2020 Assessment & Plan (1) Status post right knee replacement: Overall is doing very well. Is not having any pain in the right knee. He will see be seen by physical therapy today for ambulation and range of motion exercises. He can be discharged to home later today. He is on aspirin for DVT prophylaxis. He can follow-up with orthopedics in 2 weeks. Kelly Kate was seen and examined at bedside this morning. Overall he is doing very well. Is not having any pain in the right knee. He has been up and ambulating to the bathroom. He has no complaints.. Review of Systems All systems reviewed & are unremarkable except as noted in HPI & below. Physical Exam On physical examination of the right knee, the dressing is clean and dry. His right leg is out to full extension. He has active dorsiflexion and plantarflexion of his right ankle.. Results & Data Results & Data Laboratory Results . Diagnostic Findings Postoperative x-rays of the right knee show the prosthesis to be in anatomic alignment without any evidence of fracture, dislocation, or loosening.. PG Care Time/CCT Total # of Minutes Spent Total Time Spent with Patient: Total time spent is greater than 50% in coordination of care (as documented) at patient's floor/unit and/or counseling patient: Coding Level of Care Code 01318 Post Operative Follow-Up Diagnoses Status post right knee replacement Z96.651
--- NOTE | 2020-12-29 08:24 | Discharge Summary ---
Date of Service December 29, 2020 Admission HPI (Per Admitting) Humble is a pleasant 75-year-old male who is been dealing with chronic increasing right knee pain. X-rays and clinical examination have been diagnostic for advanced osteoarthritis of the right knee. He does have a history of a right knee arthroscopy done by Dr. Jett garza about 10 to 12 years ago. After failing conservative treatment, he has elected to proceed with a right total knee arthroplasty.. . Admission Exam (Per Admitting) On physical examination of the right knee, he is a slight varus deformity. He has a trace effusion. He has range of motion from 0 to 120 degrees. He has no instability.. Principal Diagnosis Same as "Discharge Diagnosis" noted below under Discharge Instructions. Discharge Exam On physical examination of the right knee, the dressing is clean and dry. His right leg is out to full extension. He has active dorsiflexion and plantarflexion of his right ankle.. Discharge Data Consultations 12/28/20 13:40 Consult Case Management - Discharge Planning Routine Procedures Performed Operation Date: 12/28/20 11:35 Actual Procedures p Right Total Knee Arthroplasty, Cemented(Right) - Lyle Nieves DO Ordered Studies 12/28/20 05:00 US - OR guided needle placemen Routine Hospital Course (1) Status post right knee replacement: On December 28, 2020 Humble arrived at [facility] and underwent a right total knee arthroplasty without complication. He had a spinal anesthetic. Postoperatively he was started on aspirin for DVT prophylaxis and transferred to the general orthopedic floors. His hospital course was uneventful. On postop day #1 his vital signs were stable and his pain was well controlled. He was able to participate well with physical therapy doing ambulation and range of motion exercises. He was then discharged home. He will follow-up with orthopedics in 2 weeks. PG Care Time/CCT Total # of Minutes Spent Total Time Spent with Patient: Total time spent is greater than 50% in coordination of care (as documented) at patient's floor/unit and/or counseling patient: Discharge Plan Discharge Items Patient Disposition: Home - Home Health Services Reason For Visit: Right Knee Degenerative Joint Disease Discharge Diagnosis: Right knee replacement Activity: As commented below Non-emergency contact: Surgeon Call non-emergency contact if: your wound has increased redness and your wound has increased drainage Follow-up/Referrals: Shunk,Lyle R., DO [Primary Care Provider] - Diet: Regular Addtl Attending Provider Instructions: Activity and Therapy Recommendations: * If you are using [facility] then therapy will be provided at your home until they feel you have accomplished all of your goals. * If you are using [facility] then Physical Therapy will be provided until they feel you are ready to start Outpatient Physical Therapy. * If you are not using home therapy then Outpatient Physical Therapy should start about 3-5 days from your day of surgery. Therapy will last about 6-10 weeks * It is important not to put a pillow under your knee when you are relaxing or sleeping. It is just as important to make sure you are getting your knee perfectly straight as it is to regain your knee bend. * You were shown a series of exercises in the hospital. Do these exercises three times each day including the exercises you were shown in physical therapy. * Get up and walk several times each day. For the first four weeks, try not to stand or walk for more than one hour at a time. If you do stand or walk for more than one hour, you will not hurt anything, but your leg will likely swell. * As you feel comfortable, you may change from the walker or crutches to a cane and then to independent walking. Medications: * Narcotic You will likely be sent home from the hospital with a prescription for the narcotic pain medication that worked best throughout your stay. * Aspirin Most patients will be required to take Aspirin 81mg twice a day for 6 weeks after surgery. This is obtained [id number] and a prescription is not necessary. * Other medications may be prescribed for specific circumstances. If you have any questions, please call the office at . * Resume previous home medications unless otherwise instructed TEDs/Elastic Stockings: The white elastic stockings help limit swelling and prevent blood clots from forming in your legs.~ The more you wear them, the more they work. Wear them for six weeks. Dressing Care: Leave the Silverlon dressing in place for 7 days. After 7 days you may remove the dressing. If the incision is not draining then you may leave the sheela open to air. If there is a little bit of drainage or if the sheela are getting stuck on your clothing then cover the incision with a dry dressing. The sheela will be removed at your 2 week follow-up appointment. Showering: You may shower with the Silverlon dressing in place. Do not let the shower spray hit the dressing directly. Pat the Silverlon dressing dry. If the dressing becomes wet underneath, then simply remove the dressing. Keep the incision dry until you are 7 days out from the day of surgery. After 7 days you may remove the Silverlon dressing and shower with the sheela exposed. Let soapy water run over the sheela and pat them dry. Do not scrub or soak the incision. Things To Watch For: * Drainage from the incision site that occurs more than one week after your surgery. * Increased redness at the incision site. * Fever above 102 degrees Fahrenheit. * Unusual chest pain or shortness of breath. * Call [facility] at with any of the above problems Follow-Up Visit: Follow-up with Dr. Nieves's PA (Lyle Vazquez) 2-3 weeks after your day of surgery. He will remove your sheela and answer any questions. If you have any additional questions or concerns, Dr Nieves is usually in the office at the same time and will be available An appointment was probably scheduled when you signed-up for surgery in the office. If you have any questions call Office Instructions: More detailed instructions as well as Frequently Asked Questions were provided in a folder by our office when you signed-up for surgery. Please review these instructions when you get home. If you have any further questions or concerns, please feel free to call the office at [phone] Pending Studies at Discharge: No Stand-Alone Forms: My [facility] Medications and DC Order Prescriptions: New oxycodone 5 mg Tablet 5 mg PO Q4H PRN (Reason: pain) Qty: 30 RF: 0 aspirin 81 mg Tablet,Delayed Release (Dr/Ec) 81 mg PO BID 42 Days Qty: 84 RF: 0 Continued (DME) pen needle, diabetic [BD Ultra-Fine Short Pen Needle] 31 gauge x 5/16" needle See Dose Instructions .ROUTE .MEDSUPPLY Qty: 100 RF: 3 amlodipine 5 mg tablet 5 mg PO QAM Qty: 90 RF: 3 lisinopril-hydrochlorothiazide 20-25 mg tablet 1 tab PO QAM Qty: 90 RF: 3 levothyroxine 50 mcg tablet 50 mcg PO QAM Qty: 90 RF: 3 ferrous sulfate 325 mg (65 mg iron) tablet 325 mg PO QAM Qty: 90 RF: 3 Lantus Solostar U-100 Insulin 100 unit/mL (3 mL) insulin pen 20 unit SQ HS Qty: 15 RF: 3 lisinopril 20 mg tablet 20 mg PO QAM Qty: 90 RF: 3 metformin 1,000 mg tablet 1,000 mg PO BID Qty: 180 RF: 3 dulaglutide 1.5 mg/0.5 mL pen injector 1.5 mg subcut .qweek Qty: 2 RF: 5 (DME) Acertivuch Ultra Blue Test Strip Strip See Dose Instructions .ROUTE .MEDSUPPLY Qty: 100 RF: 3 pantoprazole 40 mg tablet,delayed release (DR/EC) 40 mg PO DAILY RF: 0 atorvastatin 10 mg tablet 10 mg PO QAM RF: 0 ascorbic acid (vitamin C) 500 mg capsule 500 mg PO QPM RF: 0 Discharge Orders: Discharge Order (Routine); Ordered 12/29/20 Ordered By: Lyle Hamilton/Other Patient Handouts: Managing Type 2 Diabetes Admission Data Admit Date/Time: 12/28/20 12:16 Attending Provider: Lyle Nieves Admit Provider: Lyle Nieves Primary Care Provider: Lyle Escalona
[2020-12-29] MEDS ORDERED: NovoLIN-N (NPH) PER UNIT CHARGE SQ ONE (08:45)
[2020-12-29] MEDS: INSULIN ASPART 100 UNITS/ML 3 ML PEN SC SCH (08:51)
[2020-12-29] MEDS ORDERED: amLODIPine BESYLATE 5 MG TAB PO SCH (09:00)
[2020-12-29] MEDS ORDERED: ATORVASTATIN 10 MG TAB PO SCH (09:00)
[2020-12-29] MEDS ORDERED: LISINOPRIL/HCTZ 20/25MG 1 TAB PO SCH (09:00)
[2020-12-29] MEDS ORDERED: PANTOprazole 40 MG TAB PO SCH (09:00)
[2020-12-29] MEDS ORDERED: lisinopril 20 MG TAB PO SCH (09:00)
[2020-12-29] MEDS ORDERED: MULTIVITAMIN TAB PO SCH (09:00)
== END 2020-12-29 12:05 | disposition home health service (06) ==
LOC: 3E 09:02 → ASU 09:02